=== PATIENT | female | born 1945 | race Caucasian/White ===

== ENCOUNTER 2020-09-06 12:19 | Outpatient (CLI) | payer MEDICARE, OTHER, SELFPAY ==
--- NOTE | 2020-09-06 15:15 | XR_ITS ---
WS: [id number] Exam: XR KUB [id number] Date/Time of Exam: 09/06/2020 12:31 PM Reason For Exam: RENAL CALCULUS Comparison 07/29/2019. No bowel obstruction or free air. Signs of prior cholecystectomy. No significant abnormal calcificati on identified in the abdomen. Small calcifications in the pelvis which are nonspecific and may repres ent phleboliths. Visualized organ margins are intact. Degenerative changes and levoscoliosis of the l umbar spine. L4-5 laminectomy defect. XR/XR KUB [id number] IMPRESSION: 1. Nonspecific small pelvic calcifications noted bilaterally. 2. No acute abdominal finding.
== END 2020-09-06 12:20 | disposition home or self-care (01) ==
PROVIDERS: PCP Family Medicine; Visit Provider Urology
DX: N20.0 Calculus of kidney (principal)
CPT/HCPCS: 74018; 81003

== ENCOUNTER 2021-01-31 12:43 | Outpatient (CLI) | payer MEDICARE, OTHER, SELFPAY ==
--- NOTE | 2021-02-02 05:17 | ONC CON_ITS ---
Dr. Chong New Patient Note Patient: Isatu Joaquin Unit #: [id number]: 1945 Dicatated By: Trey Chong M.D.Date of Visit: January 31, 2021 Onc MED New Patient/Consult Referring Physician: Dr. JACOB TRIVEDI M.D. Chief Complaint: Breast cancer. History of Present Illness: This is a 75-year-old woman with multifocal grade 1 invasive lobular carcinoma of the left breast. She had presented with an abnormal screening mammogram. I do not have the complete report available on the screening mammogram or the subsequent diagnostic mammogram/ultrasound. She was noted, though, to have suspicious appearing lesions in the left breast at the 12:00 and the 1:30 o'clock positions, 8 cm from the nipple. She underwent ultrasound-guided biopsy of both lesions on 01/24/2021. Pathology at both sites showed grade 1 invasive lobular carcinoma. Results of the the breast prognostic profile are still pending. She has been good general health and she has been feeling good generally. She has pretty good energy and she has normal activity. ECOG score is 0. Her appetite is good and her weight is stable. She does not have fever, night sweats, or hot flashes. She has a history of idiopathic urticaria, which has been managed adequately with a combination of cetirizine and diphenhydramine. She does have some sinus drainage. She does not complain of cough, she has no shortness of breath or chest pain. She has no GI/ complaints other than occasional acid reflux. She has some joint pain, mainly in her thumbs, and she also has some chronic back pain. She does not complain of headache or dizziness, and she has no focal neurologic symptoms. Past Medical History: Her medical history includes familial tremor, hyperlipidemia, hypertension, idiopathic urticaria, nephrolithiasis, and type II diabetes. Past Surgical History: Her surgical/procedural history includes right ureteral stent placement followed by ESWL x 2 in 2018, cholecystectomy in 1996, partial hysterectomy in 1981, and spinal fusion in 1972. Medications: Apple Cider Vinegar 1 (450 mg) Tablet Oral daily, Atorvastatin Calcium 1 (10 mg) Tablet Oral daily, Benadryl Allergy 1 (50 mg) Tablet Oral at bedtime, Biotin 1 (5000 mcg) Capsule Oral daily, Bisoprolol-hydroCHLOROthiazide 1 (5-6.25 mg) Tablet Oral daily, Cetirizine HCl 1 (10 mg) Tablet Oral daily, Krill Oil 1 (300 mg) Capsule Oral daily, Melatonin 1 (3 mg) Capsule Oral at bedtime, metFORMIN HCl 1 (500 mg) Tablet Oral b.i.d. Allergies: Aspirin, Carbamates, and Clarithromycin. Social History: Ms. Joaquin is . She is retired. She is a non-smoker. She does not drink alcohol. Family History: Father of tuberculosis at age 35. Mother at 97 of old age. A brother age 78 with liver disease due to alcoholism. There is no history of breast cancer or ovarian cancer in the family. Review Of Symptoms: Constitutional - Her energy is pretty good. She has normal activity. Appetite is good and weight is stable. No fever, night sweats, or hot flashes. ECOG score is 0, Eyes - No change in vision, ENMT - No hearing loss or tinnitus. She has some sinus drainage. No mouth sores. No sore throat or difficulty swallowing, Hematologic/Lymphatic - No abnormal bruising or bleeding, Respiratory - No shortness of breath. No cough. No pleuritic pain or hemoptysis, Cardiovascular - No angina pain. No palpitations, Gastrointestinal - No nausea or vomiting. She has occasional acid reflux. No diarrhea or constipation. No blood in the stool or black stools, Genitourinary (F) - No dysuria or hematuria. No urinary frequency. No urgency or incontinence, Musculoskeletal - She has some joint pain, mainly in her thumbs. She also has back pain, Integumentary - She has idiopathic urticaria, Neurologic - No headache or dizziness. No numbness or tingling. No other focal neurologic symptoms, Psychiatric - She was previously on medication for depression, but that is better now. No insomnia. Vital Signs: Performed on January 31, 2021 14:12: 0, 0, 36.03 (HIGH), 1.90 sq.m, 62 in, 96 %, 78 /min, 18 /min, 137/77 mm(hg), 98.6 F, and 197 lbs (HIGH). Physical Examination: Constitutional - She appears to be in good general health, Eyes - Sclerae nonicteric. Conjunctivae clear, ENMT - No lesions noted in the oral cavity, Neck - No mass or thyromegaly, Hematologic/Lymphatic - No cervical, clavicular, or axillary adenopathy, Respiratory - Lungs are clear with good air movement bilaterally, Cardiovascular - Heart rhythm is regular. There is a II/ systolic murmur. There is no gallop or rub noted, Breasts - There are no breast masses noted. There is no axillary adenopathy, Abdomen - Soft and non-tender. Liver and spleen are not enlarged. There is no abdominal mass or ascites noted and there is no inguinal adenopathy, Back/Spine - No spine or CVA tenderness noted, Extremities - No edema. Pedal pulses are palpable bilaterally, Integumentary - No rashes. No suspicious skin lesions noted, Neurologic - No focal neurologic deficits noted. Problem List: 1. Multifocal grade 1 invasive lobular carcinoma of the left breast, status post ultrasound directed biopsy on 01/24/2021. 2. Idiopathic urticaria. 3. Hypertension. 4. Hyperlipidemia. 5. Type 2 diabetes. 6. History of nephrolithiasis. Problems Addressed with this Encounter and Plan: Patient with multifocal grade 1 invasive lobular carcinoma the left breast. On 01/24/2021 she underwent ultrasound directed biopsy of 2 lesions in the left breast, one at the 12 o'clock position and the other at the 1: 30 o'clock position, both 8 cm from the nipple. I did not have complete report pertaining to the diagnostic mammogram/ultrasound, and at this point I have no estimation on the size of the lesions, but I am assuming they are both small. The pathology results were reviewed with the patient and we discussed the clinical implications. She has multifocal grade 1 invasive lobular carcinoma involving the left breast. She is aware that she does need to have further evaluation with breast MRI to assess for other sites of involvement in the left breast and to assess the right breast, as this does have a higher potential to be bilateral. Depending on the MRI findings and results of the breast prognostic profile, she may still be eligible for breast conservation management, as the lesions do appear to be in very close proximity. If there are other sites of involvement, then she will need to undergo mastectomy. In either case, she also will have axillary lymph node sampling. Recommendations for systemic adjuvant therapy will depend on the final staging and results of the breast prognostic profile. The probability is very high, though, that she will have hormone receptor positive disease and that her systemic adjuvant therapy will be limited to endocrine therapy alone. At her age and with grade 1 disease, assuming her disease is ER/MT positive and there are no other suspected sites of involvement by MRI, we may be able to limit her treatment to lumpectomy/axillary sentinel lymph node biopsy and adjuvant endocrine therapy. Signed By: Trey Chong M.D. <<Signature on File>>
== END 2021-01-31 12:44 | disposition home or self-care (01) ==
LOC: ONCMED 12:51
PROVIDERS: PCP Family Medicine; Visit Provider Internal Medicine Medical Oncology
DX: C50.812 Malignant neoplasm of overlapping sites of left female breast (principal); Z17.0 Estrogen receptor positive status [ER+]; L50.1 Idiopathic urticaria; I10 Essential (primary) hypertension; E78.5 Hyperlipidemia, unspecified; E11.9 Type 2 diabetes mellitus without complications; Z87.442 Personal history of urinary calculi; Z79.899 Other long term (current) drug therapy
CPT/HCPCS: 99205

== ENCOUNTER 2021-03-10 08:45 | Outpatient (CLI) | payer MEDICARE, OTHER, SELFPAY ==
--- NOTE | 2021-03-10 09:43 | ONC CON_ITS ---
Dr. Chong New Patient Note Patient: Isatu Joaquin Unit #: [id number]: 1945 Dicatated By: Trey Chong M.D.Date of Visit: Mar 10, 2021 Onc MED New Patient/Consult Referring Physician: Dr. JACOB TRIVEDI M.D. Chief Complaint: Breast cancer. History of Present Illness: This is a 75-year-old woman with multifocal grade 1 invasive lobular carcinoma of the left breast. She had presented with an abnormal screening mammogram. I do not have the complete report available on the screening mammogram or the subsequent diagnostic mammogram/ultrasound. She was noted, though, to have suspicious appearing lesions in the left breast at the 12:00 and the 1:30 o'clock positions, 8 cm from the nipple. She underwent ultrasound-guided biopsy of both lesions on 01/24/2021. Pathology at both sites showed grade 1 invasive lobular carcinoma. The breast prognostic profile on the 12:00 lesion showed ER positive at 99% and WA positive at at 81%. That tumor was negative for overexpression of HER-2/kelly, 1+ by IHC. The profile on the lesion at 1:30 showed ER positive at 99% and WA positive at 99%. It also was negative for overexpression of HER-2/kelly, 1+ by IHC. I had seen her initially on 01/31/2021. With multifocal lesions in close proximity, I felt that she potentially would still be a candidate for breast conservation management, but I did recommend further imaging with bilateral breast MRI. Some problems were encountered in getting the MRI scheduled, but it was densely done at [facility] on 02/20/2021. The right breast showed some scattered tiny cysts but there were no suspicious areas of enhancement noted in the breast or in the internal mammary or axillary helena areas. The left breast showed 2 small enhancing masses in the mid depth portion relatively near each other, including a 5 mm mass at the 12 o'clock position and a 6 mm mass at the 1:30 o'clock position. There were no other areas of suspicion in the left breast or in the left internal mammary or left axillary helena areas. She is seen now to discuss further management. During this time her clinical course has been further complicated by suspected COVID-19 virus infection 2 weeks ago. At that time her daughter had tested positive and the patient was experiencing similar symptoms. These were limited to low-grade fever for 2 or 3 days and some sniffling and cough. Those symptoms have completely resolved, and she has otherwise been feeling fine. Past Medical History: Her medical history includes familial tremor, hyperlipidemia, hypertension, idiopathic urticaria, nephrolithiasis, and type II diabetes. Past Surgical History: Her surgical/procedural history includes right ureteral stent placement followed by ESWL x 2 in 2017, cholecystectomy in 1996, partial hysterectomy in 1981, and spinal fusion in 1972. Medications: Apple Cider Vinegar 1 (450 mg) Tablet Oral daily, Atorvastatin Calcium 1 (10 mg) Tablet Oral daily, Benadryl Allergy 1 (50 mg) Tablet Oral at bedtime, Biotin 1 (5000 mcg) Capsule Oral daily, Bisoprolol-hydroCHLOROthiazide 1 (5-6.25 mg) Tablet Oral daily, Cetirizine HCl 1 (10 mg) Tablet Oral daily, Krill Oil 1 (300 mg) Capsule Oral daily, Melatonin 1 (3 mg) Capsule Oral at bedtime, metFORMIN HCl 1 (500 mg) Tablet Oral b.i.d. Allergies: Aspirin, Carbamates, and Clarithromycin. Social History: Ms. Joaquin is . She is retired. She is a non-smoker. She does not drink alcohol. Family History: Father of tuberculosis at age 35. Mother at 97 of old age. A brother age 78 with liver disease due to alcoholism. There is no history of breast cancer or ovarian cancer in the family. Vital Signs: Performed on Mar 10, 2021 09:10: 2, 0, 35.01 (HIGH), 1.88 sq.m, 62.00 in, 97 %, 67 /min, 18 /min, 116/79 mm(hg), 97.1 F (LOW), and 191.4 lbs (LOW). Physical Examination: Constitutional - She looks good generally, Respiratory - Lungs are clear with good air movement bilaterally, Cardiovascular - Heart rhythm is regular. There is a II/ systolic murmur. There is no gallop or rub noted, Extremities - No edema. Problem List: 1. Multifocal grade 1 invasive lobular carcinoma of the left breast, ER/WA positive and HER-2/kelly negative. 2. Idiopathic urticaria. 3. Hypertension. 4. Hyperlipidemia. 5. Type 2 diabetes. 6. History of nephrolithiasis. Problems Addressed with this Encounter and Plan: Patient with multifocal grade 1 invasive lobular carcinoma the left breast. On 01/24/2021 she underwent ultrasound directed biopsy of 2 lesions in the left breast, one at the 12 o'clock position and the other at the 1:30 o'clock position, both 8 cm from the nipple. Both lesions were ER chest WA positive and HER-2/kelly negative. By imaging, the lesions are in close proximity, and both appear to be T1b lesions. Bilateral breast MRI shows no other suspicious lesions and no evidence of intramammary or axillary lymphadenopathy. As such, by clinical evaluation, she appears to have stage IA disease and her disease appears to be amenable to breast conservation management. Per NCCN guidelines, I think it is very reasonable to limit her treatment to lumpectomy and adjuvant endocrine therapy, assuming a negative margin can be obtained with the lumpectomy procedure. With negative clinical staging of the axilla by MRI, I think it is also acceptable to forego the axillary sentinel lymph node sampling. I did review anticipated side effects that may be associated with endocrine therapies, including the potential for osteoporosis and/or musculoskeletal pain with aromatase inhibitors and the risk of thromboembolism with tamoxifen. She is agreeable to proceeding with treatment as recommended, and she will now be seeing Dr. Vazquez for scheduling the lumpectomy procedure. Signed By: Trey Chong M.D. <<Signature on File>>
== END 2021-03-10 08:46 | disposition home or self-care (01) ==
PROVIDERS: PCP Family Medicine; Visit Provider Internal Medicine Medical Oncology
DX: C50.812 Malignant neoplasm of overlapping sites of left female breast (principal); Z17.0 Estrogen receptor positive status [ER+]; L50.1 Idiopathic urticaria; I10 Essential (primary) hypertension; E78.5 Hyperlipidemia, unspecified; E11.9 Type 2 diabetes mellitus without complications; Z87.442 Personal history of urinary calculi; Z79.899 Other long term (current) drug therapy; Z90.12 Acquired absence of left breast and nipple
CPT/HCPCS: 99215

== ENCOUNTER → 2021-03-14 14:38 | Outpatient (BNVA) | payer MEDICARE, OTHER, SELFPAY | PROVIDERS: PCP Family Medicine; Visit Provider Surgery | DX: C50.912 Malignant neoplasm of unspecified site of left female breast (principal); Z20.822 Contact with and (suspected) exposure to COVID-19 | CPT/HCPCS: 87635 ==

== ENCOUNTER 2021-03-16 19:00 | Observation (INO) | payer MEDICARE, OTHER, SELFPAY ==
[2021-03-15 10:54] VITALS: BMI 34.7
[2021-03-16] VITALS (12 sets, daily range): BP systolic 105–147; BP diastolic 63–97; PULSE 64–84; RESP 12–18; TEMP 36.1–36.8; O2SAT 93–98
--- NOTE | 2021-03-16 | US_ITS ---
WS: [id number] NUCLEAR MEDICINE SENTINEL LYMPH NODE IMAGING HISTORY: Left Breast Lumpectomy COMPARISON: 01/24/2021 TECHNIQUE: The patient was injected with 0.95 mCi of Technetium 99 ultra filtered sulfur colloid. Inj ection is intradermal in a periareolar location. Four aliquots are used.
--- NOTE | 2021-03-16 10:23 | W.PM.OPSUD ---
Surgery/Procedure H&P Update DATE OF PROCEDURE: March 16, 2021 DATE H&P PERFORMED: 03/10/21 H&P UPDATE INFORMATION: I have reviewed H&P completed within last 30 days, I have examined patient prior to procedure and No changes to prior documentation PREOP DIAGNOSIS: Left breast cancer PLANNED PROCEDURE: Operation Date: 03/16/21 11:45 Proposed Procedures p left needle loc lumpectomy with sentinel node biopy [id number] N63.20(Left) - Patrick Vazquez MD s Sentinal Lymph Node Biopsy(Left) - Patrick Vazquez MD
--- NOTE | 2021-03-16 10:24 | US_ITS ---
WS: [id number] ULTRASOUND-GUIDED LEFT BREAST NEEDLE LOCALIZATION x 2 HISTORY: Left Breast lumpectomy Procedure, risks and complications were explained to the patient. Consent is obtained. Skin is cleansed with ChloraPrep and anesthetized with 1% buffered lidocaine. Needle and guidewire pl aced to the area of concern with no complications. 2 guidewires or LEFT, one at 12:00 and one at 1:00 . These are closely associated with the biopsy clips and nodules that were previously biopsied. Ultra sound guidance performed during the needle localization. Guidewire is left within the lesion. Guidewi re secured and no complications encountered. Patient is being transported to the OR suite. Specimen radiograph is also reviewed. Wires and biopsy clips are present in the specimen. Ultrasound and mammographic images were performed to confirm. RECOMMENDATIONS: Follow-up with Dr. Vazquez. US/[place] [id number] IMPRESSION: 1. Ultrasound-guided wire localization of 2 areas within the LEFT breast with no complication. Wires and post biopsy clips are within the specimen. PATHOLOGY RESULTS: Pending. At this time the results have been not finalized.
[2021-03-16 10:31] LABS: Glucose Point of Care 97 mg/dL (70-110)
[2021-03-16] MEDS: sodium chloride 0.9% 1,000 ML 30 ML (10:41)
[2021-03-16 11:42] LABS: Glucose Point of Care 97 mg/dL (70-110)
--- NOTE | 2021-03-16 11:45 | NM_ITS ---
WS: [id number] NUCLEAR MEDICINE SENTINEL LYMPH NODE IMAGING HISTORY: Left Breast Lumpectomy COMPARISON: 01/24/2021 TECHNIQUE: The patient was injected with 0.95 mCi of Technetium 99 ultra filtered sulfur colloid. Inj ection is intradermal in a periareolar location. Four aliquots are used. NM/NM sentinel node inject [id number] IMPRESSION: Uncomplicated LEFT breast sentinel lymph node injection.
--- NOTE | 2021-03-16 12:07 | ANES.PREANE2 ---
Pre-Anesthetic Assessment Pre-Anesthetic Assessment: Height/Weight: Height 1.57 m Weight 86.183 kg Temp Pulse Resp BP Pulse Ox 98.2 F 66 18 147/90 97 03/16/21 09:46 03/16/21 09:46 03/16/21 09:46 03/16/21 09:46 03/16/21 09:46 Preop Diagnosis: Left breast cancer Proposed Procedure: Operation Date: 03/16/21 11:45 Proposed Procedures p left needle loc lumpectomy with sentinel node biopy [id number] N63.20(Left) - Patrick Vazquez MD s Sentinal Lymph Node Biopsy(Left) - Patrick Vazquez MD Was Beta Geovanny taken within 24 hours: Yes Was Clonidine taken within 24 hours: N/A Last intake: Intake Last Liquid Date 03/15/21 Last Liquid Time 21:00 Last Solid Date 03/15/21 Last Solid Time 21:00 Social: Social History: No alcohol and No tobacco Exam: Pre-Anes Outpt Exam: alert, oriented x 3, clear to auscultation bilaterally and regular rate & rhythm Airway: Submandibular: WNL Cervical ROM: WNL MP: 2 Pulmonary: Pulmonary: None reported CV/HEM: CV/HEM: HTN : : None reported Hepatic: Hepatic: None reported GI: GI: None reported Metabolic: Metabolic: DM Musc/skel: Musc/skel: OA/DJD Neuropsych: Neuropsych: None reported Anesthetic Plan: ASA status: 3 Anesthesia: General PFSH Anesthesia PFSH: Medical History (Updated 03/11/21 @ 14:23 by Patrick Vazquez MD) Angioedema Diabetes HTN (hypertension) Invasive lobular carcinoma of left breast in female Urolithiasis History of urolithiasis requiring ESWL to a right renal calculus in 2018. Did well. Surgical History History of back surgery History of extraction of renal calculus ESWL WITH STENT PLACEMENT AND STENT REMOVAL Hx of cholecystectomy Hx of hysterectomy Family History Mother , AT AGE 98 CHF (congestive heart failure) FATHER AT AGE 35 TUBERCULOSIS Social History Smoking and tobacco status: never smoked Alcohol intake: never Adopted: No Caregiver/support person: No Lives independently: Yes Marital status: / Current occupational status: retired Data Anesthesia Other Labs: Laboratory Results - last 48 hr 03/16/21 03/16/21 10:06 11:37 POC Glucose 97 97 Cardiac Studies: No Data to Display
[2021-03-16] MEDS: lidocaine 1% INJ 20 mL IM (13:46)
[2021-03-16] MEDS: isosulfan blue 10 mg/mL SDV 5mL SUBCUT (14:00)
--- NOTE | 2021-03-16 14:28 | MM_ITS ---
WS: [id number] ULTRASOUND-GUIDED LEFT BREAST NEEDLE LOCALIZATION x 2 HISTORY: Left Breast lumpectomy Procedure, risks and complications were explained to the patient. Consent is obtained. Skin is cleansed with ChloraPrep and anesthetized with 1% buffered lidocaine. Needle and guidewire pl aced to the area of concern with no complications. 2 guidewires or LEFT, one at 12:00 and one at 1:00 . These are closely associated with the biopsy clips and nodules that were previously biopsied. Ultra sound guidance performed during the needle localization. Guidewire is left within the lesion. Guidewi re secured and no complications encountered. Patient is being transported to the OR suite. Specimen radiograph is also reviewed. Wires and biopsy clips are present in the specimen. Ultrasound and mammographic images were performed to confirm. RECOMMENDATIONS: Follow-up with Dr. Vazquez. MM/MM surgical specimen LT IMPRESSION: 1. Ultrasound-guided wire localization of 2 areas within the LEFT breast with no complication. Wires and post biopsy clips are within the specimen. PATHOLOGY RESULTS: Pending. At this time the results have been not finalized.
--- NOTE | 2021-03-16 15:08 | SUR.PHASEI ---
DRESSING TO LT BREAST D/I PT DENIES PAIN, FAMILY IN ROOM VSS.
--- NOTE | 2021-03-16 15:16 | ANE.PACU2 ---
Inpatient post-anesthesia follow up: Airway intact: Yes Vital signs: Temperature 97.2 F Pulse Rate 64 Respiratory Rate 18 Blood Pressure 107/81 Pulse Oximetry 94 Oxygen Delivery Me thod Nasal Cannula Oxygen Flow Rate 3 Fraction of Inspir ed Oxygen Hydration adequate: Yes Nausea and vomiting: No Pain level: 3 Mental status: Baseline
--- NOTE | 2021-03-16 15:25 | SUR.PHASEI ---
1459 PT TO PACU WITH ORAL AIRWAY IN PLACE VSS O2 PER NC AT 8 LITERS GOOD RESP EFFORT NOTED .
--- NOTE | 2021-03-16 15:26 | SUR.PHASEI ---
EARLIER NOTE TIMED 1508 IN ERROR, SHOULD BE TIMED FOR NOW PT AWAKES EASILY VSS.
[2021-03-16] MEDS: ondansetron 2 mg/ML SDV 2 mL 4 MG IVP ×2 (15:42→16:00)
--- NOTE | 2021-03-16 16:00 | SUR.PHASEII ---
patient vomited small amount of green emesis. airway patent. medicated for nausea.
[2021-03-16] MEDS: metoclopramide 5 mg/mL SDV 2 mL 10 MG IVP ×2 (16:21→17:42)
--- NOTE | 2021-03-16 16:22 | SUR.PHASEII ---
re-medicated for vomiting. airway patent. patient ventilating well.family at bedside. patient responds to verbal commands.
--- NOTE | 2021-03-16 17:42 | SUR.PHASEII ---
patient vomited for a fourth time. green gastric fluid. airway clear. evaluated by doctor Kay. Re-medicated for nausea. \Sleeping but responds to verbal.
--- NOTE | 2021-03-16 18:02 | PM.OP ---
Operative Report Date of procedure: March 16, 2021 Pre-op Diagnosis: Invasive lobular carcinoma left breast Post-op Findings: Invasive lobular carcinoma left breast Procedure Done: 1. Wire localization lumpectomy with shave margins left breast x2 lesions 2. Injection of 3 cc of 1% Lymphazurin 3. Left axillary sentinel lymph node biopsy. Specimens removed/disposition: 1. Left breast lumpectomy specimen, short stitch superior, long stitch lateral 2. Posterior margin outer edge inked 3. Inferior margin outer edge inked 4. Medial margin outer red inked 5. New medial margin outer edge inked 6. [place] lymph node biopsy Surgeon: Patrick Vazquez Anesthesia: General Condition: stable Disposition: PACU Procedure: The wire localization of the mammographic abnormality was performed by the radiologist under ultrasound guidance and the patient was transferred to operating room and placed under MAC after IV antibiotic had been administered. The left breast was prepped and draped in a manner . A curvilinear incision was made at 3 o'clock position medial to the wires, subcutaneous tissue was divided and skin flaps were raised medially and laterally. The 2 localization wire were grasped through the incision and using electrocautery the wires along with the breast tissue containing 2 lesions were dissected free from the surrounding tissue. 1 cm shave margins were obtained from the inferior, medial, lateral aspect of the lumpectomy cavity. Using 2-0 silk suture, short stitch was placed superiorly and a long stitch was placed laterally. The lumpectomy specimens were sent to mammography to obtain radiological confirmation of complete excision of the mammographic abnormality. Due to concern of proximity of the biopsy clips to the edge of the lumpectomy specimen, new medial shave margins were obtained. A technetium sulfur colloid had been injected previously by the radiologist in the periareolar area. 3 mL of 1% Lymphazurin was injected in the subareolar location. The breast was massaged for 5 minutes and a 2 cm incision was made in the left axilla at the edge of the hairline. The subcutaneous tissue and clavipectoral fascia was divided with electrocautery and gentle dissection revealed radioactive lymph nodes using a gamma probe. Using electrocautery the lymph nodes were dissected free. Examination of the axilla did not reveal any other lymph nodes. The clavipectoral and subcutaneous tissue was approximated using running 3-0 Vicryl suture and skin was closed using running subcuticular 4-0 Monocryl suture and Dermabond. Fluffs were used for pressure dressing. Patient was transferred to recovery room and stable condition
--- NOTE | 2021-03-16 18:14 | SUR.PHASEII ---
Report given to second floor nurse -TEVIN . patient remains sleeping but responds to verbal. airway patent, ventilating well.
[2021-03-16 18:19] LABS: Glucose Point of Care 108 mg/dL (70-110)
[2021-03-16 21:11] LABS: Glucose Point of Care 156 mg/dL (70-110)
[2021-03-17 04:03] VITALS: BP 104/70; PULSE 77; RESP 17; TEMP 36.9; O2SAT 92
[2021-03-17 04:15] VITALS: PULSE 80; RESP 17; O2SAT 98
[2021-03-17 04:20] VITALS: PULSE 79
[2021-03-17 08:13] VITALS: BP 109/70; PULSE 77; RESP 18; TEMP 36.9; O2SAT 95
--- NOTE | 2021-03-17 15:16 | PM.DCS ---
Discharge Providers Date of Admission: 03/16/21 19:00 Date of Discharge: March 17, 2021 Attending Provider at Admission: Patrick Vazquez MD Attending Provider at Discharge: Patrick Vazquez MD Primary Care Provider: Jayden Clarke MD Reason for Visit Reason for Visit: left needle loc lumpectomy with sentinel node biop Hospital Course Hospital Course This is a 75-year-old female who was diagnosed with invasive lobular carcinoma who underwent left breast lumpectomy and sentinel lymph node biopsy. Patient was admitted overnight due to significant nausea. By following morning her vital signs are stable, she was tolerating regular diet and her nausea had resolved. Discharge Data Data Completed and Pending: Completed Studies During Hospitalization Category Date Time Status NM sentinel node inject [id number] Routi ne Nuc Med 03/16/21 11:45 Completed US surgical speci men Routine Ultrasound 03/16/21 Completed Pending at discharge Category Date Time Status MM surgical speci men LT Routine Mammo 03/16/21 14:28 Taken Pathology: Surgic al [PTH] Routine Pth 03/16/21 14:54 [place] [id number] Routi ne Ultrasound 03/16/21 10:24 Taken Labs from last 24 hours 03/16/21 03/16/21 21:07 15:11 POC Glucose 156 H 108 Vitals: Last Vital Signs Temp 98.4 F 03/17/21 08:13 Pulse 77 03/17/21 08:13 Resp 18 03/17/21 08:13 BP 109/70 03/17/21 08:13 Pulse Ox 95 03/17/21 08:13 Discharge Plan Discharge Patient Disposition: Home Condition: Stable Prescriptions: New Zofran 4 mg tablet 4 mg PO Q6H PRN (Reason: nausea and vomiting) Qty: 20 RF: 0 Colace 100 mg capsule 100 mg PO BID Qty: 30 RF: 0 hydrocodone-acetaminophen 5-325 mg tablet 1 tab PO Q6H PRN (Reason: pain) Qty: 20 RF: 0 Continued metformin 500 mg tablet 500 mg PO BID RF: 0 bisoprolol-hydrochlorothiazide [Ziac] 5-6.25 mg tablet 1 tab PO DAILY RF: 0 Zyrtec 10 mg capsule 20 mg PO DAILY RF: 0 diphenhydramine HCl [Benadryl Allergy] 25 mg tablet 50 mg PO DAILY RF: 0 Discharge Orders: Discharge Order (Routine); Ordered 03/17/21 Ordered By: Patrick Vazquez Referrals: Patrick Vazquez MD [Physician] - 1 month Patient Instructions: Excisional Breast Biopsy (DC), Opioid Safety Activity Restrictions/Additional Instructions: Diet Advance to normal diet as tolerated, increase fluid intake as much as possible. Activity Avoid strenuous activity for 2 weeks but continue with daily activities including walking as tolerated. Do not lift more than 10 pounds for 2 weeks Return to work/school You can return to work/ school whenever you feel ready as long as you don?t have to lift more than 10 pounds at work. If you have paperwork that needs to be completed for time off from work, please contact my office Driving You can resume driving once you stop using narcotic pain medications, and transition to non-opioid pain medications like Tylenol, Motrin, Aleve, etc. Medications Pain Take opioid pain medications as prescribed and transition to non-opioid pain medications like Tylenol, Motrin, Aleve etc. over the next few days. The goal of the pain medications is to make the pain bearable and not to be pain free since you recently had surgery. Resume all home medications after surgery as per the medication reconciliation list Nausea Nausea is common after surgery, take nausea medications as needed and stay on a liquid bland diet until nausea resolves. Constipation The combination of surgery, anesthesia and pain medications can result in constipation. Take stool softeners as prescribed. If you do not have a bowel movement in 3 days, please take an [id number] laxative like MiraLAX to address the constipation. Shower It is ok to shower but avoid getting the wound wet for 48 hours after surgery. Do not soak in bathtub, swimming pool or hot tub for 2 weeks. Wound care If glue has been used on your incisions after surgery, the glue on the incision will peel slowly over the next two weeks. The stitches used are dissolvable and will not need to be removed. Do not apply antibiotics or other medications on the incision Problems with the wound: you can develop some redness around the incision from bruising after surgery. If there is increasing pain, redness, tenderness around the incision with or without drainage, please contact my office to rule out an infection. Sometimes the skin at the incisions can separate, resulting in reopening of the wound. Cover the wound with antibiotic cream and sterile dressings and contact my office. Contact physician Call the office at [phone] during office hours or go the Emergency Room ?Fever to 100.4 or greater ?Shaking chills ?Pain that increases over time ?Redness, warmth, or pus draining from incision sites ?Persistent nausea or inability to take in liquids Discharge Attestations Time Spent in Discharge Care*: less than 30 min Quality Metrics Clinical Quality Measures During this hospital stay, did patient experience: None Coding Level of Care Code Acute Anabela WARREN DC note
== END 2021-03-17 08:10 | disposition home or self-care (01) ==
LOC: MEDSURG 21:11
PROVIDERS: Admitting Provider Surgery; PCP Family Medicine; Visit Provider Surgery
PROC: (CPT 19301; principal; 2021-03-16 11:45)
PROC: (CPT 19301; 2021-03-16 11:45)
DX: C50.912 Malignant neoplasm of unspecified site of left female breast (principal); I10 Essential (primary) hypertension; E11.9 Type 2 diabetes mellitus without complications; M19.90 Unspecified osteoarthritis, unspecified site; Z20.822 Contact with and (suspected) exposure to COVID-19
CPT/HCPCS: 19301; 38525; 19285; 19286; 36416; 38792; 82962; 88305; 96365; A9541; G0378; J0690; J1170; J2250; J2405; J2704; J2765; J3010; J3490; J7030; Q9968

== ENCOUNTER 2021-04-11 06:00 | Outpatient (CLI) | payer MEDICARE, OTHER, SELFPAY ==
--- NOTE | 2021-04-14 17:55 | ONC FU_ITS ---
Dr. Chong Patient Follow-Up Note Patient: Isatu Joaquin Unit #: [id number]: [id number] Dicatated By: Trey Chong M.D.Date of Visit:Apr 11, 2021 Onc Med Follow-up/Prog Note Chief Complaint: Breast cancer. History of Present Illness: This is a 75-year-old woman with multifocal grade 1 invasive lobular carcinoma of the left breast. She had presented with an abnormal screening mammogram. I do not have the complete report available on the screening mammogram or the subsequent diagnostic mammogram/ultrasound. She was noted, though, to have suspicious appearing lesions in the left breast at the 12:00 and the 1:30 o'clock positions, 8 cm from the nipple. She underwent ultrasound-guided biopsy of both lesions on 01/24/2021. Pathology at both sites showed grade 1 invasive lobular carcinoma. The breast prognostic profile on the 12:00 lesion showed ER positive at 99% and ME positive at at 81%. That tumor was negative for overexpression of HER-2/kelly, 1+ by IHC. The profile on the lesion at 1:30 showed ER positive at 99% and ME positive at 99%. It also was negative for overexpression of HER-2/kelly, 1+ by IHC. I had seen her initially on 01/31/2021. With multifocal lesions in close proximity, I felt that she potentially would still be a candidate for breast conservation management, but I did recommend further imaging with bilateral breast MRI. Some problems were encountered in getting the MRI scheduled, but it was densely done at [facility] on 02/20/2021. The right breast showed some scattered tiny cysts but there were no suspicious areas of enhancement noted in the breast or in the internal mammary or axillary helena areas. The left breast showed 2 small enhancing masses in the mid depth portion relatively near each other, including a 5 mm mass at the 12 o'clock position and a 6 mm mass at the 1:30 o'clock position. There were no other areas of suspicion in the left breast or in the left internal mammary or left axillary helena areas. I had seen her for a follow-up visit on 03/10/2021. Given the MRI findings, she was recommended to proceed with left breast lumpectomy and axillary sentinel lymph node biopsy. Her further management, though, was complicated due to suspected COVID-19 virus infection. Ultimately, she did have the procedure performed by Dr. Vazquez on 03/16/2021. According to the operative note, the lumpectomy specimen included both lesions. Pathology showed a single focus of grade 1 invasive lobular carcinoma measuring 0.4 cm. All margins were negative and uninvolved. There was no in situ carcinoma identified. Two foci of atypical lobular hyperplasia were noted in the specimen. The left axillary lymph node sampling showed no involvement in 5 lymph nodes. Her pathologic staging was pT1a, pN0. She is seen now for a follow-up visit. She has been feeling good generally. She had completely recovered from the COVID-19 illness prior to the surgery. Medications: Atorvastatin Calcium 1 (10 mg) Tablet Oral daily, Benadryl Allergy 1 (50 mg) Tablet Oral at bedtime, Bisoprolol-hydroCHLOROthiazide 1 (5-6.25 mg) Tablet Oral daily, Cetirizine HCl 1 (10 mg) Tablet Oral daily, Melatonin 1 (3 mg) Capsule Oral at bedtime, metFORMIN HCl 1 (500 mg) Tablet Oral b.i.d. Allergies: Aspirin, Carbamates, and Clarithromycin. Vital Signs: Performed on Apr 11, 2021 13:52 Height - 62.00 in Weight - 194.4 lbs (HIGH) BSA - 1.89 sq.m BMI - 35.56 (HIGH) Temperature - 97.8 F (LOW) Pulse - 84 /min Respiration - 18 /min BP - 122/79 mm(hg) O2 Sat - 98 % Pain - 0 Fatigue - 3 Problem List: 1. Multifocal grade 1 invasive lobular carcinoma of the left breast, stage IA (pT1a, pN0, M0), ER/ME positive and HER-2/kelyl negative. 2. Idiopathic urticaria. 3. Hypertension. 4. Hyperlipidemia. 5. Type 2 diabetes. 6. History of nephrolithiasis. Problems Addressed with this Encounter and Plan: Patient with multifocal grade 1 invasive lobular carcinoma the left breast. On 01/24/2021 she underwent ultrasound directed biopsy of 2 lesions in the left breast, one at the 12 o'clock position and the other at the 1:30 o'clock position, both 8 cm from the nipple. Both lesions were ER/ME positive and HER-2/kelly negative. By imaging, the lesions were in close proximity, and both appeared to be T1b lesions. Bilateral breast MRI showed no other suspicious lesions and no evidence of intramammary or axillary lymphadenopathy. As such, by clinical evaluation, she appears to have stage IA disease, and her disease appeared to be amenable to breast conservation management. She then underwent left breast lumpectomy with axillary sentinel lymph node biopsy on 03/16/2021. Pathology showed a single focus of grade 1 invasive lobular carcinoma measuring 0.4 cm. The margins were negative. There was no involvement in 5 axillary lymph nodes. Given the pathology findings, her disease is stage IA (pT1a, pN0, M0). It is ER/ME positive and HER-2/kelly negative. Per NCCN guidelines, she is recommended to have adjuvant endocrine therapy, but she can be safely treated without radiation. She will now begin adjuvant therapy with anastrozole 1 mg daily. I reviewed anticipated side effects which may include osteoporosis and/or musculoskeletal pain. Hot flashes and fatigue are other possible side effects, though less frequent. I will need to reassess her baseline bone density as her last study was done in 2016. She did have evidence of mild osteopenia at that time. She will be scheduled for a follow-up visit in 3 months. Signed By: Trey Chong M.D. <<Signature on File>>
== END 2021-04-11 06:01 | disposition home or self-care (01) ==
LOC: ONCMED 06:00
PROVIDERS: PCP Family Medicine; Visit Provider Internal Medicine Medical Oncology
DX: C50.812 Malignant neoplasm of overlapping sites of left female breast (principal); Z17.0 Estrogen receptor positive status [ER+]; Z79.811 Long term (current) use of aromatase inhibitors; L50.1 Idiopathic urticaria; I10 Essential (primary) hypertension; E78.5 Hyperlipidemia, unspecified; E11.9 Type 2 diabetes mellitus without complications; Z87.442 Personal history of urinary calculi; Z79.899 Other long term (current) drug therapy
CPT/HCPCS: 99214

== ENCOUNTER 2021-04-14 12:28 | Outpatient (CLI) | payer MEDICARE, OTHER, SELFPAY ==
--- NOTE | 2021-04-14 12:41 | XR_ITS ---
WS: [id number] SCREENING DEXA SCAN [facility] CLINICAL INFORMATION: ASYMPTOMATIC MENOPAUSAL STATE COMPARISON: None. FINDINGS: The L1-L4 bone mineral density measures . This corresponds to a T score score of and Z score of . Left femoral neck bone mineral density measures 0.779 g/cm2. This corresponds to a T score of -1.8 an d Z score of -0.5. Right femoral neck bone mineral density measures 0.761 g/cm2. This corresponds to a T score -2.0of an d Z score of -0.7. Mean femoral neck bone mineral density measures 0.770 g/cm2. This corresponds to a T score of -1.9 an d Z score of -0.6. XR/XR DEXA axial skeleton* [id number] IMPRESSION: Osteopenia. Patient's FRAX calculated 10 year probability for major osteoporotic fracture i s 18.3 % and osteoporotic hip fracture is 6.3%.
== END 2021-04-14 12:29 | disposition home or self-care (01) ==
PROVIDERS: PCP Family Medicine; Visit Provider Internal Medicine Medical Oncology
DX: C50.812 Malignant neoplasm of overlapping sites of left female breast (principal); M85.89 Other specified disorders of bone density and structure, multiple sites
CPT/HCPCS: 77080

== ENCOUNTER 2021-08-01 14:55 | Outpatient (CLI) | payer MEDICARE, OTHER, SELFPAY ==
--- NOTE | 2021-08-02 06:36 | ONC FU_ITS ---
Dr. Chong Patient Follow-Up Note Patient: Isatu Joaquin Unit #: [id number]: [id number] Dicatated By: Trey Chong M.D.Date of Visit:Aug 01, 2021 Onc Med Follow-up/Prog Note Chief Complaint: Breast cancer. History of Present Illness: This is a 75-year-old woman with multifocal grade 1 invasive lobular carcinoma of the left breast, stage IA (T1b, N0, M0), ER/MO positive and HER-2/kelly negative. She had presented with an abnormal screening mammogram. I do not have the complete report available on the screening mammogram or the subsequent diagnostic mammogram/ultrasound. She was noted, though, to have suspicious appearing lesions in the left breast at the 12:00 and the 1:30 o'clock positions, 8 cm from the nipple. She underwent ultrasound-guided biopsy of both lesions on 01/24/2021. Pathology at both sites showed grade 1 invasive lobular carcinoma. The breast prognostic profile on the 12:00 lesion showed ER positive at 99% and MO positive at at 81%. That tumor was negative for overexpression of HER-2/kelly, 1+ by IHC. The profile on the lesion at 1:30 showed ER positive at 99% and MO positive at 99%. It also was negative for overexpression of HER-2/kelly, 1+ by IHC. I had seen her initially on 01/31/2021. With multifocal lesions in close proximity, I felt that she potentially would still be a candidate for breast conservation management, but I did recommend further imaging with bilateral breast MRI. Some problems were encountered in getting the MRI scheduled, but it was eventually done at [facility] on 02/20/2021. The right breast showed some scattered tiny cysts but there were no suspicious areas of enhancement noted in the breast or in the internal mammary or axillary helena areas. The left breast showed 2 small enhancing masses in the mid depth portion relatively near each other, including a 5 mm mass at the 12 o'clock position and a 6 mm mass at the 1:30 o'clock position. There were no other areas of suspicion in the left breast or in the left internal mammary or left axillary helena areas. I had seen her for a follow-up visit on 03/10/2021. Given the MRI findings, she was recommended to proceed with left breast lumpectomy and axillary sentinel lymph node biopsy. Her further management, though, was complicated due to suspected COVID-19 virus infection. Ultimately, she did have the procedure performed by Dr. Vazquez on 03/16/2021. According to the operative note, the lumpectomy specimen included both lesions. Pathology showed a single focus of grade 1 invasive lobular carcinoma measuring 0.4 cm. All margins were negative and uninvolved. There was no in situ carcinoma identified. Two foci of atypical lobular hyperplasia were noted in the specimen. The left axillary lymph node sampling showed no involvement in 5 lymph nodes. Her pathologic staging was pT1a, pN0. Given those findings, she opted not to take radiation. She then began adjuvant endocrine therapy with anastrozole 1 mg daily on 04/11/2021. Her other medical illnesses include hypertension, hyperlipidemia, and type 2 diabetes. She also has degenerative arthritis/degenerative disease of the spine. She has a history of idiopathic urticaria and a history of nephrolithiasis. She is a non-smoker. INTERIM HISTORY: Her baseline bone density showed osteopenia with T score -1.8 in the left femoral neck and -2.0 in the right femoral neck. She is seen for a follow-up visit. She has been feeling a little tired since starting the anastrozole, but she still has normal activity. ECOG score is 0. She has good appetite. She has not had fever. She has been having some hot flashes and sweating. She has not had sore mouth or throat. She does not complain of cough, and she has not been having shortness of breath or chest pain. She has no GI or complaints. She has joint pain, but it has not gotten not any worse. She does not complain of headache or dizziness, and she has no focal neurologic symptoms. Medications: Anastrozole 1 Tablet (of 1 mg) Oral daily, Atorvastatin Calcium 1 (10 mg) Tablet Oral daily, Benadryl Allergy 1 (50 mg) Tablet Oral at bedtime, Bisoprolol-hydroCHLOROthiazide 1 (5-6.25 mg) Tablet Oral daily, Cetirizine HCl 1 (10 mg) Tablet Oral daily, Melatonin 1 (3 mg) Capsule Oral at bedtime PRN, metFORMIN HCl 1 (500 mg) Tablet Oral b.i.d. Allergies: Aspirin, Carbamates, and Clarithromycin. Vital Signs: Performed on Aug 01, 2021 15:08 Height - 62.00 in Weight - 199.8 lbs (HIGH) BSA - 1.91 sq.m BMI - 36.54 (HIGH) Temperature - 96.0 F (LOW) Pulse - 78 /min Respiration - 16 /min BP - 138/83 mm(hg) O2 Sat - 96 % Pain - 0 Fatigue - 3 Physical Examination: Constitutional - She looks good generally, Eyes - Sclerae nonicteric. Conjunctivae clear, ENMT - No lesions noted in the oral cavity, Hematologic/Lymphatic - No cervical, clavicular, or axillary adenopathy, Respiratory - Lungs are clear with good air movement bilaterally, Cardiovascular - Heart rhythm is regular. There is no murmur, gallop, or rub noted, Abdomen - Mildly distended. Liver and spleen are not enlarged. There is no abdominal mass or ascites noted and there is no inguinal adenopathy, Extremities - No edema, Neurologic - No focal neurologic deficits noted. Problem List: 1. Multifocal grade 1 invasive lobular carcinoma of the left breast, stage IA (pT1a, pN0, M0), ER/MO positive and HER-2/kelly negative. 2. Idiopathic urticaria. 3. Hypertension. 4. Hyperlipidemia. 5. Type 2 diabetes. 6. History of nephrolithiasis. 7. Degenerative arthritis/degenerative disease of the spine. 8. Osteopenia. Problems Addressed with this Encounter and Plan: 1. Patient with multifocal grade 1 invasive lobular carcinoma the left breast, stage IA (pT1a, pN0, M0), ER/MO positive and HER-2/kelly negative. On 01/24/2021 she underwent ultrasound directed biopsy of 2 lesions in the left breast, one at the 12 o'clock position and the other at the 1:30 o'clock position, both 8 cm from the nipple. Both lesions were ER/MO positive and HER-2/kelly negative. By imaging, the lesions were in close proximity, and both appeared to be T1b lesions. Bilateral breast MRI showed no other suspicious lesions and no evidence of intramammary or axillary lymphadenopathy. She underwent left breast lumpectomy with axillary sentinel lymph node biopsy on 03/16/2021. Pathology showed a single focus of grade 1 invasive lobular carcinoma measuring 0.4 cm. The margins were negative. There was no involvement in 5 axillary lymph nodes. Pathologic staging was pT1a, pN0. Given the pathologic findings, she opted not to take radiation. She began adjuvant hormonal therapy with anastrozole in April 2021. Thus far she has tolerated it well with side effects limited to mild fatigue and hot flashes. She continues anastrozole 1 mg daily. I will see her again in 6 months. 2. Her baseline Dexa scan showed osteopenia. She will start treatment with alendronate 70 mg weekly. Signed By: Trey Chong M.D. <<Signature on File>>
== END 2021-08-01 14:56 | disposition home or self-care (01) ==
LOC: ONCMED 14:57
PROVIDERS: PCP Family Medicine; Visit Provider Internal Medicine Medical Oncology
DX: C50.812 Malignant neoplasm of overlapping sites of left female breast (principal); Z17.0 Estrogen receptor positive status [ER+]; Z90.12 Acquired absence of left breast and nipple; Z79.811 Long term (current) use of aromatase inhibitors; L50.1 Idiopathic urticaria; I10 Essential (primary) hypertension; E78.5 Hyperlipidemia, unspecified; E11.9 Type 2 diabetes mellitus without complications; M47.9 Spondylosis, unspecified; M85.80 Other specified disorders of bone density and structure, unspecified site; Z87.442 Personal history of urinary calculi; Z79.899 Other long term (current) drug therapy
CPT/HCPCS: 99214

== ENCOUNTER 2021-09-11 04:02 | Emergency (ER) | payer MEDICARE, OTHER, SELFPAY ==
[2021-09-11 04:14] VITALS: BP 129/83; PULSE 77; RESP 18; TEMP 36.5; O2SAT 97; BMI 36.6
--- NOTE | 2021-09-11 04:24 | ED_ITS ---
HPI - Allergic Reaction General: Chief complaint: Allergic Reaction Stated complaint: Allergice Reaction\Tongue Swelling Time Seen by Provider: 09/11/21 04:09 Source: patient Mode of arrival: ambulatory Limitations: no limitations History of Present Illness: HPI narrative: 75-year-old female states she has a history of angioedema with unknown cause. She states that starting few hours ago she started having some swelling to her tongue states it is much worse earlier she felt like her tongue was feeling her mouth she is not taking any meds at home but Benadryl states that its improved denies any shortness of breath denies any difficulty swallowing does have a slightly muffled voice has had a slight cough for over a week. Associated symptoms: Deny abdominal pain, nausea or vomiting Review of Systems Const: Denies: fever(s), chills, body aches or change in appetite Eyes: Denies: blurry vision or eye discomfort ENMT: Denies: throat pain or dental pain Card: Denies: chest pain Resp: Denies: dyspnea GI: Denies: abdominal pain, nausea, vomiting or diarrhea : Denies: dysuria Musc: Denies: neck pain or back pain Skin/Breast: Denies: rash Neuro: Denies: headache(s) Psych: Denies: depression Charlie/Lymph: Denies: easy bruising All/Imm: Denies: urticaria PFSH ED PFSH: Medical History Angioedema Diabetes HTN (hypertension) Invasive lobular carcinoma of left breast in female pT1a, pN0. Urolithiasis History of urolithiasis requiring ESWL to a right renal calculus in 2018. Did well. Surgical History History of back surgery History of extraction of renal calculus ESWL WITH STENT PLACEMENT AND STENT REMOVAL Hx of cholecystectomy Hx of hysterectomy Status post left breast lumpectomy (03/16/21) With sentinel lymph node biopsy Family History Mother , AT AGE 98 CHF (congestive heart failure) FATHER AT AGE 35 TUBERCULOSIS Social History Smoking and tobacco status: never smoked Alcohol intake: never Adopted: No Caregiver/support person: No Lives independently: Yes Marital status: / Current occupational status: retired Physical Exam Const: COMMON NORMALS: no acute distress, patient oriented x3 and healthy ap pearing HENMT: COMMON NORMALS: normocephalic and atraumatic HEAD & SCALP: normocephalic and atraumatic OTHER: Mild to moderate angioedema affecting the left side of the tongue no obstruction she is handling her secretions well no dyspnea Eye: COMMON NORMALS: Equal, round and reactive pupils present and EOMs intact bilaterally PUPIL: Yes Equal, round and reactive pupils present Neck/C-Spine: COMMON NORMALS: full ROM and supple Chest: COMMONS NORMALS: normal inspection of the chest and normal palpation of entire chest wall Resp: COMMON NORMALS: normal respiratory effort, No retractions, No use of a ccessory muscles and clear to auscultation bilaterally AUSCULTATION: clear to auscultation bilaterally Cardio: COMMON NORMALS: regular rate, regular rhythm and No murmurs present (Cardio) RATE: regular rate RHYTHM: regular rhythm GI: COMMON NORMALS: Normal to inspection, nondistended, normoactive bowel sounds present, Soft to palpation, non-tender and no masses PALPATION: Yes Soft to palpation Extremity: COMMON NORMALS: normal to inspection and full ROM Neuro: COMMON NORMALS: patient oriented x3, moves all extremities and no focal motor deficits Psych: COMMON NORMALS: mental status grossly normal, Normal thought process present and cooperative THOUGHT PROCESS: Normal thought process present Skin: COMMON NORMALS: no rashes or lesions noted and no wounds GENERAL SKIN EXAM: no rashes or lesions noted Course Vital Signs: Vital signs: Vital Signs Temperature 97.7 F 09/11/21 04:14 Pulse Rate 81 09/11/21 05:00 Respiratory Rate 22 H 09/11/21 05:00 Blood Pressure 153/70 09/11/21 05:00 Pulse Oximetry 95 09/11/21 05:00 MDM - Allergic Reaction MDM Narrative: Medical decision making narrative: Patient presents here with angioedema she states she feels much improved here she is requesting discharge I informed her that since I did give her epinephrine I would really like to watch her for 1 or 2 more hours as she could have some rebound. She states that she has had this multiple times before and states been stressing better she has never had a get worse and she wants to go home currently. I informed her she has any worsening symptoms she is to return immediately she understands agrees to plan she has a cough over the last week as well x-ray here is normal no pneumonia. Discharge Plan Discharge Patient Disposition: Home Clinical Impression: Cough Angioedema Qualifiers: Encounter type: initial encounter Qualified Code(s): T78.3XXA - Angioneurotic edema, initial encounter Condition: Stable Prescriptions: No Action metformin 500 mg tablet 500 mg PO BID RF: 0 bisoprolol-hydrochlorothiazide [Ziac] 5-6.25 mg tablet 1 tab PO DAILY RF: 0 Zyrtec 10 mg capsule 20 mg PO DAILY RF: 0 diphenhydramine HCl [Benadryl Allergy] 25 mg tablet 50 mg PO DAILY RF: 0 docusate sodium 100 mg capsule See Rx Instructions .ROUTE .COMPLEX Qty: 30 RF: 0 Zofran 4 mg tablet 4 mg PO Q6H PRN (Reason: nausea and vomiting) Qty: 20 RF: 0 hydrocodone-acetaminophen 5-325 mg tablet 1 tab PO Q6H PRN (Reason: pain) Qty: 20 RF: 0 Discharge Orders: Discharge ED (Routine); Ordered 09/11/21 Ordered By: Gerard Rodriguez Referrals: Jayden Clarke MD [Primary Care Provider] - Discharge Diet: Advance as tolerated Discharge Activity: Resume usual activity Patient Instructions: Angioedema (ED) Coding Level of Care Code ED Market Risk Specialist for Anabela Fwd Exam Comprehensive
--- NOTE | 2021-09-11 04:26 | XRR_ITS ---
PROCEDURE INFORMATION: Exam: XR Chest Exam date and time: 09/11/2021 4:26 AM Age: 75 years old Clinical indication: Prior surgery; Surgery type: Left breast lumpectomy. Gb. ; Patient HX: Allergic reaction. Tongue swelling with cough. History of left breast carcinoma. TECHNIQUE: Imaging protocol: XR of the chest. Views: 1 view. COMPARISON: 1. CR XR KUB [id number] 2020-09-06 12:53 2. CR XR KUB [id number] 2019-07-29 12:26 3. CR XR KUB [id number] 2019-01-21 13:05 4. CR XR KUB [id number] 2018-12-03 08:32 FINDINGS: Lungs: Unremarkable. No consolidation. Pleural spaces: Unremarkable. No pleural effusion. No pneumothorax. Heart/Mediastinum: Unremarkable. No cardiomegaly. Bones/joints: Mild dextroconvex thoracic curvature. Soft tissues: Left breast clips. Mediastinal lipomatosis. XR/XR chest 1V portable [id number] IMPRESSION: No acute findings.
[2021-09-11] MEDS: diphenhydrAMINE 50 mg/mL SDV 1mL IVP (04:37)
[2021-09-11] MEDS: EPINEPHrine 1 mg/mL INJ 0.3 MG IM (04:38)
[2021-09-11] MEDS: famotidine 20 mg/2 mL INJ 40 MG IVP (04:39)
[2021-09-11] MEDS: sodium chloride 0.9% (100 ml) 100 ML (04:43)
[2021-09-11] MEDS: benzonatate 100 mg Capsule PO (04:55)
[2021-09-11 05:00] VITALS: BP 153/70; PULSE 81; RESP 22; O2SAT 95
[2021-09-11 05:32] VITALS: BP 150/90; PULSE 86; RESP 17; O2SAT 93
== END 2021-09-11 05:35 | disposition home or self-care (01) ==
PROVIDERS: Emergency Provider Emergency Medicine; PCP Family Medicine
DX: T78.3XXA Angioneurotic edema, initial encounter (principal); R05.9 Cough, unspecified; E11.9 Type 2 diabetes mellitus without complications; I10 Essential (primary) hypertension; Z85.3 Personal history of malignant neoplasm of breast
CPT/HCPCS: 71045; 94640; 96372; 96374; 96375; 99284; J0171; J1200; J2930; J3490; J7611

== ENCOUNTER 2022-02-15 10:00 | Oncology outpatient (recurring) (ONCR) | payer MEDICARE, OTHER, SELFPAY | END 2022-03-08 23:59 | disposition home or self-care (01) | PROVIDERS: PCP Family Medicine; Referring Provider Family Medicine; Visit Provider Internal Medicine Medical Oncology | DX: C50.812 Malignant neoplasm of overlapping sites of left female breast (principal); Z17.0 Estrogen receptor positive status [ER+]; M85.80 Other specified disorders of bone density and structure, unspecified site | CPT/HCPCS: 80053; 82306; 85025; 99214 ==

== ENCOUNTER 2022-04-18 12:16 | Outpatient (CLI) | payer MEDICARE, OTHER, SELFPAY ==
--- NOTE | 2022-04-18 12:35 | MM_ITS ---
WS: [id number] BILATERAL 3D TOMOSYNTHESIS DIGITAL DIAGNOSTIC MAMMOGRAPHY WITH CAD CLINICAL INFORMATION: HX OF BREAST CA COMPARISON: 01/24/2021 and 12/12/2020 TECHNIQUE: Bilateral CC, MLO, and ML views. FINDINGS: Scattered fibroglandular densities bilaterally. Postoperative changes LEFT breast with lumpectomy. As sociated surgical clips. A few tiny incidental punctate calcifications in both breasts. No suspicious focal mass, asymmetry, calcifications, or architectural distortion. No evidence of heather gnancy. MM/[place] [id number] IMPRESSION: BI-RADS: 2-Benign FOLLOW UP: 1 Year Follow-up Recommend return to annual diagnostic mammography.
== END 2022-04-18 12:17 | disposition home or self-care (01) ==
LOC: RAD 12:16
PROVIDERS: PCP Family Medicine; Visit Provider Surgery
DX: Z85.3 Personal history of malignant neoplasm of breast (principal)
CPT/HCPCS: 77062

== ENCOUNTER 2022-08-16 12:08 | Oncology outpatient (recurring) (ONCR) | payer MEDICARE, OTHER, SELFPAY ==
[2022-08-16 12:56] LABS: Basophils % 0.3 %; Eosinophils # 0.2 10^3/uL (0.0-0.8); Eosinophils % 3.1 %; Hematocrit 44.4 % (37.0-47.0); Hemoglobin 14.5 g/dL (11.5-15.3); Lymphocytes % 34.3 %; Mean Corpuscular HGB Conc 32.7 g/dL (30.0-36.0); Mean Corpuscular Hemoglobin 31.5 pg (28.0-34.0); Mean Corpuscular Volume 96.5 fl (81-99); Mean Platelet Volume 9.8 fL (7.4-10.4); Monocytes # 0.5 10^3/uL (0.2-0.9); Monocytes % 8.1 %; Neutrophils # 3.18 10^3/uL (1.8-7.7); Nucleated Red Blood Cells % 0 %; Platelet Count 237 10^3/cmm (130-400); Red Cell Distribution Width 13.3 % (12.1-15.1); White Blood Count 5.9 10^3/uL (4.0-10.0)
[2022-08-16 13:20] LABS: Alanine Aminotransferase 16 U/L (0-33); Albumin Level 3.9 g/dL (3.5-5.2); Alkaline Phosphatase 74 U/L (35-105); Anion Gap 13.1 (5-19); Aspartate Amino Transferase 19 U/L (0-32); Blood Urea Nitrogen 27 mg/dL (8-23); Calcium 9.5 mg/dL (8.5-10.5); Carbon Dioxide 27 mmol/L (22-29); Chloride 107 mmol/L (98-107); Globulin 2.9 g/dL (1.3-4.6); Glucose 101 mg/dL (65-115); Osmolality Calculated 301 mOsm/kg (285-295); Potassium 4.1 mmol/L (3.5-5.1); Sodium 143 mmol/L (136-145); Total Bilirubin 0.3 mg/dL (0.15-1.2); Total Protein 6.8 g/dL (6.6-8.7)
== END 2022-09-08 23:59 | disposition home or self-care (01) ==
PROVIDERS: PCP Family Medicine; Visit Provider Internal Medicine Medical Oncology
DX: C50.812 Malignant neoplasm of overlapping sites of left female breast (principal); Z17.0 Estrogen receptor positive status [ER+]; Z79.811 Long term (current) use of aromatase inhibitors; Z79.899 Other long term (current) drug therapy
CPT/HCPCS: 36415; 80053; 85025; 99214

== ENCOUNTER 2022-09-11 12:11 | Outpatient (CLI) | payer MEDICARE, OTHER, SELFPAY ==
--- NOTE | 2022-09-11 12:23 | XR_ITS ---
WS: [id number] KUB, AP view, 09/11/2022 Clinical Data: STONES Comparison: KUB, 09/06/2020 Findings: No abnormal intraabdominal masses or calcifications are seen. There is no dilatated small bowel or ev idence of obstruction. Bowel gas obscures minimal detail over both kidneys. There is a levoscoliosis of the lumbar spine wit h a laminectomy at L5. XR/XR KUB [id number] Impression: Negative KUB.
== END 2022-09-11 12:12 | disposition home or self-care (01) ==
LOC: RAD 12:17
PROVIDERS: PCP Family Medicine; Visit Provider Urology
DX: N20.9 Urinary calculus, unspecified (principal)
CPT/HCPCS: 74018; 81003; 99213

== ENCOUNTER 2023-02-12 11:38 | Oncology outpatient (recurring) (ONCR) | payer MEDICARE, OTHER, SELFPAY ==
[2023-02-12 11:57] VITALS: BP 139/82; PULSE 70; RESP 18; TEMP 37.1; O2SAT 99
[2023-02-12 12:11] LABS: Basophils % 0.4 %; Eosinophils # 0.2 10^3/uL (0.0-0.8); Hemoglobin 13.4 g/dL (11.5-15.3); Lymphocytes # 1.9 10^3/uL (0.8-4.8); Lymphocytes % 32.8 %; Mean Corpuscular HGB Conc 31.9 g/dL (30.0-36.0); Mean Corpuscular Hemoglobin 30.5 pg (28.0-34.0); Mean Corpuscular Volume 95.7 fl (81-99); Mean Platelet Volume 9.6 fL (7.4-10.4); Monocytes # 0.5 10^3/uL (0.2-0.9); Monocytes % 8.2 %; Neutrophils # 3.13 10^3/uL (1.8-7.7); Neutrophils % 55.4 %; Nucleated Red Blood Cells % 0 %; Platelet Count 227 10^3/cmm (130-400); Red Blood Count 4.39 10^6/uL (4.1-5.3); Red Cell Distribution Width 13.8 % (12.1-15.1); White Blood Count 5.6 10^3/uL (4.0-10.0)
[2023-02-12 12:36] LABS: Alanine Aminotransferase 12 U/L (0-33); Albumin Level 3.6 g/dL (3.5-5.2); Alkaline Phosphatase 67 U/L (35-105); Blood Urea Nitrogen 20 mg/dL (8-23); Calcium 8.6 mg/dL (8.5-10.5); Carbon Dioxide 21 mmol/L (22-29); Chloride 107 mmol/L (98-107); Glucose 91 mg/dL (65-115); Osmolality Calculated 290 mOsm/kg (285-295); Sodium 139 mmol/L (136-145); Total Bilirubin 0.3 mg/dL (0.15-1.2); Total Protein 6.6 g/dL (6.6-8.7)
[2023-02-12 12:39] LABS: Anion Gap 15.2 (5-19); Aspartate Amino Transferase 196 U/L (0-32); Potassium 4.2 mmol/L (3.5-5.1)
== END 2023-03-08 23:59 | disposition home or self-care (01) ==
PROVIDERS: PCP Family Medicine; Visit Provider Internal Medicine Medical Oncology
DX: C50.812 Malignant neoplasm of overlapping sites of left female breast (principal); Z17.0 Estrogen receptor positive status [ER+]; Z79.811 Long term (current) use of aromatase inhibitors; Z79.899 Other long term (current) drug therapy
CPT/HCPCS: 36415; 80053; 85025; 99213

== ENCOUNTER 2023-05-08 13:44 | Outpatient (CLI) | payer MEDICARE, OTHER, SELFPAY ==
--- NOTE | 2023-05-08 13:53 | MM_ITS ---
WS: [id number] BILATERAL 3D TOMOSYNTHESIS DIGITAL DIAGNOSTIC MAMMOGRAPHY WITH CAD CLINICAL INFORMATION: surveillance COMPARISON: 2021 TECHNIQUE: Bilateral CC, MLO, and ML views. FINDINGS: Fatty replaced breasts bilaterally. Postoperative changes LEFT breast lumpectomy with surgical clips. A few incidental punctate calcifications. No suspicious focal mass, asymmetry, calcifications, or architectural distortion. No evidence of heather gnancy. IMPRESSION: MM/[place] [id number] BI-RADS: 2-Benign FOLLOW UP: 1 Year Follow-up Recommend return to annual diagnostic mammography.
== END 2023-05-08 13:45 | disposition home or self-care (01) ==
PROVIDERS: PCP Family Medicine; Visit Provider Internal Medicine Medical Oncology
DX: C50.812 Malignant neoplasm of overlapping sites of left female breast (principal)
CPT/HCPCS: 77062; G0279

== ENCOUNTER 2023-07-23 13:56 | Outpatient (CLI) | payer MEDICARE, OTHER, SELFPAY ==
--- NOTE | 2023-07-23 14:30 | XR_ITS ---
WS: [id number] SCREENING DEXA SCAN [employer] CLINICAL INFORMATION: compare to previous COMPARISON: 2020 FINDINGS: LEFT forearm bone mineral density measures 0.428. This corresponds to a T score score of -5.1 and Z s core of -2.4. Left femoral neck bone mineral density measures 0.747 g/cm2. This corresponds to a T score of -2.1 an d Z score of -0.7. Right femoral neck bone mineral density measures 0.757 g/cm2. This corresponds to a T score -2.0of an d Z score of -0.6. Mean femoral neck bone mineral density measures 0.752 g/cm2. This corresponds to a T score of -2.0 an d Z score of -0.6. IMPRESSION: Osteoporosis LEFT forearm. Osteopenia femoral necks. Patient's FRAX calculated 10 year probability for major osteoporotic fracture is 20.0% and osteoporot ic hip fracture is 7.2%. Bone mineral density femoral necks decreased -2.3%
== END 2023-07-23 13:57 | disposition home or self-care (01) ==
LOC: RAD 13:56
PROVIDERS: PCP Family Medicine; Visit Provider Nurse Practitioner Family
DX: M81.0 Age-related osteoporosis without current pathological fracture (principal); C50.812 Malignant neoplasm of overlapping sites of left female breast
CPT/HCPCS: 77080

== ENCOUNTER 2023-08-14 13:21 | Oncology outpatient (recurring) (ONCR) | payer MEDICARE, OTHER, SELFPAY | END 2023-09-08 23:59 | disposition home or self-care (01) | LOC: ONCMED 13:22 | PROVIDERS: PCP Family Medicine; Visit Provider Internal Medicine Medical Oncology | DX: C50.812 Malignant neoplasm of overlapping sites of left female breast (principal); Z17.0 Estrogen receptor positive status [ER+]; Z79.811 Long term (current) use of aromatase inhibitors; Z79.899 Other long term (current) drug therapy | CPT/HCPCS: 99213 ==

== ENCOUNTER 2024-02-17 09:56 | Oncology outpatient (recurring) (ONCR) | payer MEDICARE, OTHER, SELFPAY ==
[2024-02-14 10:11] VITALS: BP 130/84; TEMP 36.2
[2024-02-14] MEDS: denosumab 60 mg SDV SUBCUT (10:12)
== END 2024-03-08 23:59 | disposition home or self-care (01) ==
PROVIDERS: PCP Family Medicine; Visit Provider Internal Medicine Medical Oncology
DX: C50.812 Malignant neoplasm of overlapping sites of left female breast (principal); Z17.0 Estrogen receptor positive status [ER+]; Z79.811 Long term (current) use of aromatase inhibitors; Z79.899 Other long term (current) drug therapy; M85.80 Other specified disorders of bone density and structure, unspecified site
CPT/HCPCS: 96372; 99213; J0897

== ENCOUNTER 2024-03-19 09:44 | Oncology outpatient (recurring) (ONCR) | payer MEDICARE, OTHER, SELFPAY ==
[2024-03-19 10:16] LABS: Basophils % 0.4 %; Eosinophils # 0.2 10^3/uL (0.0-0.8); Eosinophils % 3.1 %; Hematocrit 44.8 % (36-47); Lymphocytes # 1.7 10^3/uL (0.8-4.8); Lymphocytes % 30.7 %; Mean Corpuscular HGB Conc 31.9 g/dL (30-55); Mean Corpuscular Hemoglobin 30.6 pg (27-33); Mean Corpuscular Volume 95.9 fl (85-98); Mean Platelet Volume 9.3 fL (7.4-10.4); Monocytes # 0.5 10^3/uL (0.2-0.9); Monocytes % 8.5 %; Neutrophils # 3.11 10^3/uL (1.8-7.7); Neutrophils % 57.1 %; Nucleated Red Blood Cells % 0 %; Platelet Count 265 10^3/cmm (157-399); Red Blood Count 4.67 10^6/uL (3.85-5.65); Red Cell Distribution Width 13.4 % (12.1-15.1); White Blood Count 5.44 10^3/uL (3.29-11.43)
[2024-03-19 10:37] LABS: Alanine Aminotransferase 9 U/L (0-33); Albumin Level 3.6 g/dL (3.5-5.2); Alkaline Phosphatase 79 U/L (35-105); Anion Gap 12.2 (5-19); Aspartate Amino Transferase 16 U/L (0-32); Blood Urea Nitrogen 22 mg/dL (8-23); Calcium 8.9 mg/dL (8.5-10.5); Carbon Dioxide 27 mmol/L (22-29); Chloride 106 mmol/L (98-107); Globulin 3.6 g/dL (1.3-4.6); Glucose 108 mg/dL (65-115); Osmolality Calculated 296 mOsm/kg (285-295); Potassium 4.2 mmol/L (3.5-5.1); Sodium 141 mmol/L (136-145); Total Bilirubin 0.5 mg/dL (0.15-1.2); Total Protein 7.2 g/dL (6.6-8.7)
[2024-03-19 10:55] LABS: Hepatitis A Antibody IgM Non-Reactive (Nonreactive); Hepatitis B Core AB, Total Non-Reactive (Nonreactive); Hepatitis B Surface AB < 3.5 (11.5-1000); Hepatitis B Surface Antigen Non-Reactive (Nonreactive); Hepatitis C Virus Antibody Non-Reactive (Nonreactive)
== END 2024-04-08 23:59 | disposition home or self-care (01) ==
LOC: ONCMED 09:44
PROVIDERS: Internal Medicine; PCP Family Medicine; Visit Provider Internal Medicine Medical Oncology
DX: C50.812 Malignant neoplasm of overlapping sites of left female breast (principal); Z79.811 Long term (current) use of aromatase inhibitors
CPT/HCPCS: 36415; 80053; 85025; 86705; 86706; 86709; 86803; 87340

== ENCOUNTER 2024-04-09 13:42 | Inpatient (IN) | payer MEDICARE, OTHER, SELFPAY ==
[2024-04-09] VITALS (22 sets, daily range): BP systolic 106–156; BP diastolic 67–117; PULSE 74–99; RESP 9–27; TEMP 36.9–37.3; O2SAT 93–99; BMI 37.8
--- NOTE | 2024-04-09 14:24 | P.HP_ITS ---
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 Clarke PCP who called me for direct admit for treatment with IVIG. At the time of evaluation patient is hemodynamically stable she is History of CHF COPD does not smoke or drink alcohol, fairly active for her age, patient started experiencing numbness and tingling 2 weeks ago in her lower extremities, she has been experiencing diarrhea which she is stating is chronic in nature, recently suffered with flu a week ago. Review of Systems Const: Denies: fever(s) Eyes: Denies: change in vision ENMT: Denies: throat pain Card: Denies: chest pain Resp: Denies: dyspnea GI: Denies: abdominal pain : Denies: flank pain or urinary frequency Musc: Denies: neck pain Skin/Breast: Denies: rash Neuro: Reports: restless legs Medications/Allergies Home Medications Medication Instructions Recorded Confirmed Last Taken Type bisoprolol 5 1 tab PO DAILY 09/06/20 04/09/24 03/15/21 17:00 History mg-hydrochlorothiazide 6.25 mg tablet (Ziac) cetirizine 10 mg capsule (Zyrtec) 20 mg PO DAILY 03/10/21 04/09/24 03/15/21 08:00 History diphenhydramine HCl 25 mg tablet 50 mg PO DAILY 03/10/21 04/09/24 03/15/21 17:00 History (Benadryl Allergy) biotin 1 mg capsule 1 mg PO DAILY 09/11/22 04/09/24 Unknown History cholecalciferol (vitamin D3) 10 10 mcg PO DAILY 09/11/22 04/09/24 Unknown History mcg (400 unit) capsule atorvastatin 10 mg tablet 5 mg PO Q7D 02/12/23 04/09/24 Unknown History anastrozole 1 mg tablet 1 mg PO DAILY #90 tabs 02/24/24 04/09/24 Unknown Rx Allergies Allergy/AdvReac Type Severity Reaction Status Date / Time latex Allergy Unknown Unknown Verified 04/09/24 12:39 nitrile Allergy Unknown Unknown Verified 04/09/24 12:39 PFSH Acute PFSH: Medical History Breast cancer Osteopenia Hyperlipidemia Familial tremor Urolithiasis History of urolithiasis requiring ESWL to a right renal calculus in 2018. Did well. Diabetes HTN (hypertension) Angioedema Surgical History Status post left breast lumpectomy (03/16/21) With sentinel lymph node biopsy History of back surgery Hx of cholecystectomy Hx of hysterectomy History of extraction of renal calculus ESWL WITH STENT PLACEMENT AND STENT REMOVAL Family History Mother , AT AGE 98 Congestive heart failure (CHF) FATHER AT AGE 35 TUBERCULOSIS Social History Smoking and tobacco/nicotine status: never used tobacco/nicotine Alcohol intake: never Adopted: No Caregiver/support person: No Lives independently: Yes Marital status: / Current occupational status: retired Physical Exam Narrative: Patient has tremors mostly in her right hand Nonfocal neuroexam GCS 15 Awake and alert Euvolemic Abdomen soft Hemodynamic stable S1, S2 No active Rester distress Reflexes equivocal A&P Assessment and plan (1) 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 Positive GD 1 a antibodies with IgM Nerve conduction studies positive as well Start IVIG 0.4 mg/kg body weight for 5 days Monitor for swallow capacity which should not be below 20 mill per kilo which will need prophylactic intubation Monitor in ICU Check B12 TSH and hemoglobin A1c Patient has been experiencing tingling and numbness of lower extremities She has chronic history of essential tremors right upper extremity worse than rest of the extremities Awake and alert No history of CHF or IN Full code Cardiac diet Asked RT to check forced vital capacity on daily basis which should not be less than 2 L at least, check nif as well DVT prophylaxis added Hypertension: Continue Ziac Spoke with the PCP, 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
--- NOTE | 2024-04-09 14:38 | CTR_ITS ---
PROCEDURE INFORMATION: Exam: CT Head Without Contrast Exam date and time: 04/09/2024 4:36 PM Age: 78 years old Clinical indication: Condition or disease; Other: Guillain barre TECHNIQUE: Imaging protocol: Computed tomography of the head without contrast. Radiation optimization: All CT scans at this facility use at least one of these dose optimization techniques: automated exposure control; mA and/or kV adjustment per patient size (includes targeted exams where dose is matched to clinical indication); or iterative reconstruction. COMPARISON: No relevant prior studies available. RADIATION DOSE METRICS: Total DLP (mGy-cm): 1083.2 FINDINGS: Brain: No hemorrhage. No edema. Mild diffuse cerebral atrophy and sequela of chronic small vessel ischemic disease. No mass effect. Cerebral ventricles: No ventriculomegaly. Paranasal sinuses: Visualized sinuses are unremarkable. No fluid levels. Mastoid air cells: Visualized mastoid air cells are well aerated. Bones: Unremarkable. No acute fracture. Soft tissues: Unremarkable. CT/CT head wo con* [id number] IMPRESSION: No acute intracranial abnormality.
--- NOTE | 2024-04-09 15:32 | PC.RESP ---
FVC PERD. 2.80 pt. fvc 2.62. elbert well
[2024-04-09 15:56] LABS: Thyroid Stimulating Hormone 2.12 uIU/mL (0.27-4.20); Vitamin B12 172 pg/mL (232-1245)
[2024-04-09 16:03] LABS: Estmated Average Glucose 120; Hemoglobin A1C 5.8 % (4.0-6.0)
--- NOTE | 2024-04-09 16:16 | P.CONIM_ITS ---
Providers/Reason For Consult Consulting Physician/Specialty*: Silvio Lopez MD neurology and epilepsy Reason for Consult*: Acute onset of hand and feet numbness with concerns for progression in numbness and tingling and change in reflexes performed by Dr. 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 NCV study performed on the bilateral upper and lower extremities revealed motor and sensory axonal polyneuropathy with possible superimposed distal median nerve entrapment at the wrist suggestive of superimposed bilateral carpal tunnel syndrome and possibility of axonal inflammatory polyneuropathy cannot be excluded. Attending Physician: Pola Ladd MD Primary Care Provider: Jayden Clarke MD History of Present Illness History of Present Illness Isatu Joaquin is a 78 year old female with a history of breast cancer 2020, type 2 diabetes mellitus, hypertension, and osteoporosis. Patient also reports a history of [place] area manifested as episodic facial swelling and tongue and lip swelling treated with Benadryl and Zyrtec. The patient was evaluated by her family physician secondary to complaints of acute onset of hand and feet numbness. The patient was reevaluated with complaints of progression in her symptoms. In view of the patient's reports of progression in the numbness and tingling and change in reflexes performed by Dr. 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 NCV study performed on the bilateral upper and lower extremities on 04/09/2024 revealed a motor and sensory axonal polyneuropathy with possible superimposed distal median nerve entrapment at the wrist suggestive of superimposed bilateral carpal tunnel syndrome as well as a motor axonal peroneal neuropathy nonlocalized and motor and sensory axonal tibial neuropathy, nonlocalized and therefore the possibility of axonal inflammatory polyneuropathy cold not be excluded. The patient was admitted for IVIG treatment and to monitor for any progression in her symptoms. Drug allergies: Latex type reaction unknown Nitrile type reaction unknown Current medications Prolia for osteoporosis Vitamin D3 400 international units p.o. daily Benadryl 25 mg p.o. nightly for Urticra Zyrtec 10 mg tablets 2 p.o. daily for Urticra Lipitor 10 mg tablets 1/2 tablet p.o. every week Anastrozole 1 mg p.o. daily Bisoprolol 5 mg/hydrochlorothiazide 6.25 mg p.o. daily Past medical history: Breast cancer 2020 Osteoporosis Familial essential tremor Hypertension Type 2 diabetes mellitus Kidney stones x 3 Urticra manifested as facial swelling and tongue swelling Habits: None Family history: Nephew who recently from heart disease Review of Systems General: Reports: 10 or more systems reviewed and unremarkable except in HPI and below Medications/Allergies Home Medications Medication Instructions Recorded Confirmed Last Taken Type bisoprolol 5 1 tab PO DAILY 09/06/20 04/09/24 03/15/21 17:00 History mg-hydrochlorothiazide 6.25 mg tablet (Ziac) cetirizine 10 mg capsule (Zyrtec) 20 mg PO DAILY 03/10/21 04/09/24 03/15/21 08:00 History diphenhydramine HCl 25 mg tablet 50 mg PO DAILY 03/10/21 04/09/24 03/15/21 17:00 History (Benadryl Allergy) biotin 1 mg capsule 1 mg PO DAILY 09/11/22 04/09/24 Unknown History cholecalciferol (vitamin D3) 10 10 mcg PO DAILY 09/11/22 04/09/24 Unknown History mcg (400 unit) capsule atorvastatin 10 mg tablet 5 mg PO Q7D 02/12/23 04/09/24 Unknown History anastrozole 1 mg tablet 1 mg PO DAILY #90 tabs 02/24/24 04/09/24 Unknown Rx Allergies Allergy/AdvReac Type Severity Reaction Status Date / Time latex Allergy Unknown Unknown Verified 04/09/24 12:39 nitrile Allergy Unknown Unknown Verified 04/09/24 12:39 PFSH Acute PFSH: Medical History Breast cancer Osteopenia Hyperlipidemia Familial tremor Urolithiasis History of urolithiasis requiring ESWL to a right renal calculus in 2018. Did well. Diabetes HTN (hypertension) Angioedema Surgical History Status post left breast lumpectomy (03/16/21) With sentinel lymph node biopsy History of back surgery Hx of cholecystectomy Hx of hysterectomy History of extraction of renal calculus ESWL WITH STENT PLACEMENT AND STENT REMOVAL Family History Mother , AT AGE 98 Congestive heart failure (CHF) FATHER AT AGE 35 TUBERCULOSIS Social History Smoking and tobacco/nicotine status: never used tobacco/nicotine Alcohol intake: never Adopted: No Caregiver/support person: No Lives independently: Yes Marital status: / Current occupational status: retired Physical Exam Narrative: The patient is alert and oriented x 3. Speech fluent. Head normocephalic. Neck supple. Pupils 3 to 4 mm round reactive light and accommodation. Extraocular movements intact. Motor testing 5/5 bilaterally except for 4/5 strength in the abductor pollicis brevis muscles bilaterally. There was no drift. Patient did have a mild postural tremor in her hands bilaterally. There was some mild atrophy of the abductor pollicis brevis muscles bilaterally. There were no obvious fasciculations. Deep tendon reflexes 2+ in the upper extremities and 2+ patellar reflexes bilaterally. Achilles were areflexic bilaterally. Plantar responses flexor bilaterally. There was no clonus. Sensory examination revealed decreased pinprick in her toes to her distal feet and soles of her feet in a stocking glove distribution. There was also decreased pinprick in the first digit of the hands bilaterally up to her proximal thumbs. Pinprick was intact in the other extremities. Proprioception was intact in all extremities. Throat clear. Lungs clear. Heart regular rhythm and rate. Extremities were negative for clubbing cyanosis or edema. Pulses 2+ in the lower extremities. Pulses 3+ in upper extremities. 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 Acute onset of hand and feet numbness with concerns for progression in numbness and tingling and change in reflexes over 1 to [address] 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 NCV study performed on the bilateral upper and lower extremities revealed motor and sensory axonal polyneuropathy with possible superimposed distal median nerve entrapment at the wrist suggestive of superimposed bilateral carpal tunnel syndrome and possibility of axonal inflammatory polyneuropathy cannot be excluded. Abnormal NCV of the bilateral upper and lower extremities 04/09/2024 Impression: Electrophysiologically this NCV study of the bilateral upper and lower extrem ities reveals the followin. Bilateral motor axonal peroneal neuropathy, nonlocalized 2. Bilateral motor and sensory axonal tibial neuropathy, nonlocalized 3. Bilateral motor and sensory axonal median neuropathy with possible superimposed median nerve entrapment at the wrist, right side greater than left. Therefore the possibility of superimposed bilateral carpal tunnel syndrome should also be considered and therefore further clinical correlation is required. 4. 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 Plan: 1. Agree with patient being admitted to the intensive care unit for evaluation and treatment with IVIG 0.4 mg/kg/day IV for 5 days consecutively 2. Monitor patient's forced vital capacity twice a day and contact hospitalist if the patient's forced vital capacity is less than 2 L 3. Neurochecks and vital signs every 4 hours 4. IV normal saline 75 cc/h during IVIG infusion and 1 hour post IVIG infusion each day to minimize renal issues that can be related with IVIG infusion 5. Recommend patient undergo noncontrast head CT if not already performed 6. Recommend lumbar puncture to be performed under fluoroscopy by radiology to assess opening and closing pressure and evaluate for chronic infection and to obtain CSF for glucose, protein and VDRL 7. 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 syndrome. 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
[2024-04-09] MEDS: IMMUNE GLOBULIN 40 GM/400 ML IV (17:24)
--- NOTE | 2024-04-09 18:53 | PC.NURSE ---
Respiratory to do force vital capacity test daily and contact Dr. Montes De Oca if below 2L.
[2024-04-09] MEDS: cyanocobalamin 1,000 mcg/mL SDV 1000 MCG IM (19:44)
[2024-04-09] MEDS: sodium chloride 0.9% 1,000 ML 75 ML IV (19:45)
[2024-04-10] VITALS (31 sets, daily range): BP systolic 120–152; BP diastolic 62–109; PULSE 69–103; RESP 16–26; TEMP 36.7–36.8; O2SAT 91–98; BMI 37.8
[2024-04-10 04:17] LABS: Basophils % 0.4 %; Eosinophils # 0.1 10^3/uL (0.0-0.8); Eosinophils % 1.3 %; Hematocrit 38.6 % (36-47); Lymphocytes % 23.1 %; Mean Corpuscular HGB Conc 32.9 g/dL (30-55); Mean Corpuscular Hemoglobin 31.2 pg (27-33); Mean Corpuscular Volume 94.8 fl (85-98); Mean Platelet Volume 9.5 fL (7.4-10.4); Monocytes # 0.2 10^3/uL (0.2-0.9); Monocytes % 5.2 %; Neutrophils % 69.8 %; Nucleated Red Blood Cells % 0 %; Platelet Count 208 10^3/cmm (157-399); Red Blood Count 4.07 10^6/uL (3.85-5.65); Red Cell Distribution Width 13.6 % (12.1-15.1); White Blood Count 4.45 10^3/uL (3.29-11.43)
[2024-04-10 04:37] LABS: Anion Gap 12.9 (5-19); Blood Urea Nitrogen 29 mg/dL (8-23); C Reactive Protein 5.2 mg/L (0.0-4.9); Calcium 8.4 mg/dL (8.5-10.5); Carbon Dioxide 22 mmol/L (22-29); Chloride 110 mmol/L (98-107); Creatinine Clr Calc Pharmacy 41.8349; Glucose 130 mg/dL (65-115); Magnesium 1.9 mg/dL (1.7-2.3); Osmolality Calculated 300 mOsm/kg (285-295); Potassium 3.9 mmol/L (3.5-5.1); Sodium 141 mmol/L (136-145)
[2024-04-10] MEDS: hydroCHLOROthiazide 25 mg Tablet 6.25 MG PO (10:28)
[2024-04-10] MEDS: cyanocobalamin 1,000 mcg/mL SDV 1000 MCG IM (10:28)
--- NOTE | 2024-04-10 11:38 | PC.RESP ---
fvc 2.62
--- NOTE | 2024-04-10 12:17 | PM.PN ---
Subjective Subjective: History of Present Illness Isatu Joaquin is a 78 year old female with a history of breast cancer 2019, type 2 diabetes mellitus, hypertension, and osteoporosis. Patient also reports a history of [place] area manifested as episodic facial swelling and tongue and lip swelling treated with Benadryl and Zyrtec. The patient was evaluated by her family physician secondary to complaints of acute onset of hand and feet numbness. The patient was reevaluated with complaints of progression in her symptoms. In view of the patient's reports of progression in the numbness and tingling and change in reflexes performed by Dr. 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 NCV study performed on the bilateral upper and lower extremities on 04/09/2024 revealed a motor and sensory axonal polyneuropathy with possible superimposed distal median nerve entrapment at the wrist suggestive of superimposed bilateral carpal tunnel syndrome as well as a motor axonal peroneal neuropathy nonlocalized and motor and sensory axonal tibial neuropathy, nonlocalized and therefore the possibility of axonal inflammatory polyneuropathy cold not be excluded. The patient was admitted for IVIG treatment and to monitor for any progression in her symptoms. The patient received first round of IVIG on 04/09/2024. Patient reports no side effects from the medication and stated that she is feeling better. She was without complaints this morning. Drug allergies: Latex type reaction unknown Nitrile type reaction unknown Current Home medications Prolia for osteoporosis Vitamin D3 400 international units p.o. daily Benadryl 25 mg p.o. nightly for Urticra Zyrtec 10 mg tablets 2 p.o. daily for Urticra Lipitor 10 mg tablets 1/2 tablet p.o. every week Anastrozole 1 mg p.o. daily Bisoprolol 5 mg/hydrochlorothiazide 6.25 mg p.o. daily Past medical history: Breast cancer 2019 Osteoporosis Familial essential tremor Hypertension Type 2 diabetes mellitus Kidney stones x 3 Urticra manifested as facial swelling and tongue swelling Habits: None Family history: Nephew who recently from heart disease Review of Systems General: Reports: 10 or mor e systems reviewed and unremarkable except in HPI and below Vitals/I&O/Wt Last Vital Signs Temp 99.1 F 04/09/24 23:30 Pulse 81 04/10/24 11:30 Resp 21 H 04/10/24 11:30 BP 148/88 04/10/24 10:00 Pulse Ox 96 04/10/24 11:30 O2 Del Method Room Air 04/10/24 08:21 04/09/24 04/10/24 04/10/24 22:59 06:59 14:59 Intake Total 640 / 640 120 / 120 Output Total 400 / 400 Balance 240 / 240 120 / 120 Weight last 48 hrs Weight 200 lb Weight 200 lb Physical Exam Narrative: The patient is alert and oriented x 3. Speech fluent. Head normocephalic. Neck supple. Pupils 3 to 4 mm round reactive light and accommodation. Extraocular movements intact. Motor testing 5/5 bilaterally except for 4/5 strength in the abductor pollicis brevis muscles bilaterally. There was no drift. Patient did have a mild postural tremor in her hands bilaterally. There was some mild atrophy of the abductor pollicis brevis muscles bilaterally. There were no obvious fasciculations. Deep tendon reflexes 2+ in the upper extremities and 2+ patellar reflexes bilaterally. Achilles were areflexic bilaterally. Plantar responses flexor bilaterally. There was no clonus. Sensory examination revealed decreased pinprick in her toes to her distal feet and soles of her feet in a stocking glove distribution. There was also decreased pinprick in the first digit of the hands bilaterally up to her proximal thumbs. Pinprick was intact in the other extremities. Proprioception was intact in all extremities. Throat clear. Lungs clear. Heart regular rhythm and rate. Extremities were negative for clubbing cyanosis or edema. Pulses 2+ in the lower extremities. Pulses 3+ in upper extremities. 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 Acute onset of hand and feet numbness with concerns for progression in numbness and tingling and change in reflexes over 1 to [address] 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 NCV study performed on the bilateral upper and lower extremities revealed motor and sensory axonal polyneuropathy with possible superimposed distal median nerve entrapment at the wrist suggestive of superimposed bilateral carpal tunnel syndrome and possibility of axonal inflammatory polyneuropathy cannot be excluded. Abnormal NCV of the bilateral upper and lower extremities 04/09/2024 Impression: Electrophysiologically this NCV study of the bilateral upper and lower extremities reveals the followin. Bilateral motor axonal peroneal neuropathy, nonlocalized 2. Bilateral motor and sensory axonal tibial neuropathy, nonlocalized 3. Bilateral motor and sensory axonal median neuropathy with possible superimposed median nerve entrapment at the wrist, right side greater than left. Therefore the possibility of superimposed bilateral carpal tunnel syndrome should also be considered and therefore further clinical correlation is required. 4. 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 Plan: 1. Continue current treatment and complete 5 days of IVIG. 2. Schedule patient for follow-up in the [facility] neurology clinic 2 weeks after discharge 3. 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
--- NOTE | 2024-04-10 12:43 | P.PN_ITS ---
Subjective 2 Subjective: No overnight events /Requested on 2.6 L Patient is doing well hemodynamically stable Will request stool studies I will start her anastrozole as well Transfer out of ICU to [facility] Vitals/I&O/Wt Last Vital Signs Temp 99.1 F 04/09/24 23:30 Pulse 81 04/10/24 11:30 Resp 21 H 04/10/24 11:30 BP 148/88 04/10/24 10:00 Pulse Ox 96 04/10/24 11:30 O2 Del Method Room Air 04/10/24 08:21 04/09/24 04/10/24 04/10/24 22:59 06:59 14:59 Intake Total 640 / 640 120 / 120 Output Total 400 / 400 Balance 240 / 240 120 / 120 Weight last 48 hrs Weight 90.718 kg Weight 90.718 kg Physical Exam 2 Narrative: Awake and alert GCS 15 Pleasant cough No sign of respite distress Complaining of numbness tingling of lower extremity Reflexes equivocal S1, S2 Currently on room air Data 04/10/24 03:44 04/10/24 03:44 A&P Assessment and plan (1) 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 Reflexes equivocal Forced vital capacity 2.6 L, 2.7 L yesterday Check every shift Can be transferred out of ICU Hemodynamically stable Continue IVIG, day 2 of IVIG today IVIG started 04/09 Antibodies positive, B12 deficiency nerve conduction study consistent with B12 deficiency most likely with motor and sensory axonal nephropathy Started B12 supplementation Chronic diarrhea requested stool studies Full code Cardiac diet Transfer out of ICU to [facility] I had requested LP but patient is not interested in LP I will go ahead start DVT prophylaxis Patient most likely will go home after 5 days of IVIG Breast cancer continue anastrozole Attestations 2 Medical Necessity Statement*: Continue medical management Diagnoses Axonal polyneuropathy G62.9 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
--- NOTE | 2024-04-10 13:33 | PC.NURSE ---
Transfer Note Patient transferred to med-surg room 262 from ICU via wheelchair. Handoff report given to Leticia. Patient oriented to environment and equipment. Covering service notified. Orders reviewed and will continue to monitor. Family notified regarding patient transfer. Upon atransfer patient is alert/oriented x4 on room air. No wounds or skin issues noted at this time. All belongings transported with patient and placed at bedside.
--- NOTE | 2024-04-10 14:44 | PC.SOCIAL ---
IMM Updated Updated pt on IMM. No questions voiced. Provided pt a copy. Initialed, dated, & timed a copy & placed in chart.
[2024-04-10] MEDS: enoxaparin 40 mg/0.4 mL Syringe SUBCUT (14:47)
[2024-04-10] MEDS: IMMUNE GLOBULIN 40 GM/400 ML IV (18:11)
[2024-04-10] MEDS: sodium chloride 0.9% 1,000 ML 75 ML IV (20:53)
[2024-04-11] VITALS (8 sets, daily range): BP systolic 121–141; BP diastolic 65–84; PULSE 17–80; RESP 14–93; TEMP 36.6–36.8; O2SAT 91–96
[2024-04-11 03:05] LABS: Glucose Point of Care 131 mg/dL (70-110)
[2024-04-11] MEDS: ondansetron 2 mg/ML SDV 2 mL 4 MG IVP ×2 (03:08→14:52)
[2024-04-11 03:37] LABS: Basophils % 0.3 %; Eosinophils # 0.2 10^3/uL (0.0-0.8); Eosinophils % 4.5 %; Hematocrit 42.1 % (36-47); Lymphocytes # 1.7 10^3/uL (0.8-4.8); Lymphocytes % 45.6 %; Mean Corpuscular HGB Conc 31.1 g/dL (30-55); Mean Corpuscular Hemoglobin 30.5 pg (27-33); Mean Corpuscular Volume 97.9 fl (85-98); Mean Platelet Volume 9.6 fL (7.4-10.4); Monocytes # 0.3 10^3/uL (0.2-0.9); Neutrophils # 1.53 10^3/uL (1.8-7.7); Neutrophils % 40.3 %; Nucleated Red Blood Cells % 0 %; Platelet Count 192 10^3/cmm (157-399); Red Cell Distribution Width 13.6 % (12.1-15.1); White Blood Count 3.79 10^3/uL (3.29-11.43)
--- NOTE | 2024-04-11 03:43 | PC.NURSE ---
Patient received Immune Globulin 40gm in 400ml q24h, today was day 2 out of 5 of the dosing. Finished earlier and was running on normal saline and line infiltrated in right forearm. New line was put in left forearm and back to running on NS at 75ml/h. Patient had complain of nausea and was given Zofran. Vital signs were B/P 151/93, R-20, P-85, T- 97.9, Spo2- 97% on RA. Patient stated that she normally takes their antihypertensive at HS at home but has been receiving them during the day while here in the hospital. No c/o of chest pain and is starting to feel better. Dr. Nielson was updated and notifed of the situation, no new orders at this moment in time.
[2024-04-11 04:04] LABS: Anion Gap 12.2 (5-19); Blood Urea Nitrogen 21 mg/dL (8-23); Calcium 8.5 mg/dL (8.5-10.5); Carbon Dioxide 24 mmol/L (22-29); Chloride 109 mmol/L (98-107); Creatinine Clr Calc Pharmacy 46.0184; Glucose 115 mg/dL (65-115); Osmolality Calculated 296 mOsm/kg (285-295); Potassium 4.2 mmol/L (3.5-5.1); Sodium 141 mmol/L (136-145)
--- NOTE | 2024-04-11 08:30 | P.PN_ITS ---
Subjective 2 Subjective: Seen this morning. Overnight patient states she got dizzy when she walked to the bathroom however is feeling better at this time. She says overall she feels weak and it is not a certain area of the body. She is able to walk steady on her feet however feels she is generally deconditioned. Vitals/I&O/Wt Last Vital Signs Temp 98.0 F 04/11/24 07:40 Pulse 69 04/11/24 07:40 Resp 14 04/11/24 07:40 BP 121/65 04/11/24 07:40 Pulse Ox 94 04/11/24 07:40 O2 Del Method Room Air 04/11/24 07:40 04/10/24 04/11/24 04/11/24 22:59 06:59 14:59 Intake Total 1640 / 1880 Balance 1640 / 1880 Weight last 48 hrs Weight 93.213 kg Weight 90.718 kg Weight 90.718 kg Physical Exam 2 Narrative: Awake and alert GCS 15 Pleasant cough No sign of respite distress Not complaining of numbness or tingling. 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 Hemodynamically stable Continue IVIG, day 3 of IVIG today IVIG started 04/09 Antibodies positive, B12 deficiency nerve conduction study consistent with B12 deficiency most likely with motor and sensory axonal nephropathy Started B12 supplementation Chronic diarrhea requested stool studies Full code Cardiac diet Transfer out of ICU to [facility] I had requested LP but patient is not interested in LP Continue on DVT prophylaxis. Patient most likely will go home after 5 days of IVIG Breast cancer continue anastrozole Check physical therapy consult. 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
[2024-04-11] MEDS: hydroCHLOROthiazide 25 mg Tablet 6.25 MG PO (08:42)
[2024-04-11] MEDS: anastrozole 1 mg Tablet PO (08:42)
[2024-04-11] MEDS: cyanocobalamin 1,000 mcg/mL SDV 1000 MCG IM (08:42)
--- NOTE | 2024-04-11 10:29 | PC.RESP ---
FVC IS 2.55
[2024-04-11] MEDS: sodium chloride 0.9% 1,000 ML 75 ML IV (11:32)
[2024-04-11] MEDS: enoxaparin 40 mg/0.4 mL Syringe SUBCUT (14:19)
[2024-04-11] MEDS: acetaminophen 500 mg Tablet PO (17:32)
[2024-04-11] MEDS: IMMUNE GLOBULIN 40 GM/400 ML IV (17:35)
[2024-04-12] MEDS: sodium chloride 0.9% 1,000 ML 75 ML IV ×2 (03:10→16:28)
[2024-04-12 04:00] VITALS: BP 159/88; PULSE 97; RESP 16; TEMP 36.7; O2SAT 91
[2024-04-12 04:22] LABS: Basophils % 0.3 %; Eosinophils # 0.1 10^3/uL (0.0-0.8); Eosinophils % 4.3 %; Hematocrit 38.4 % (36-47); Lymphocytes # 1.2 10^3/uL (0.8-4.8); Lymphocytes % 38.6 %; Mean Corpuscular HGB Conc 31.3 g/dL (30-55); Mean Corpuscular Hemoglobin 30.5 pg (27-33); Mean Corpuscular Volume 97.7 fl (85-98); Mean Platelet Volume 9.6 fL (7.4-10.4); Monocytes # 0.3 10^3/uL (0.2-0.9); Monocytes % 10.6 %; Neutrophils % 46.2 %; Nucleated Red Blood Cells % 0 %; Platelet Count 169 10^3/cmm (157-399); Red Blood Count 3.93 10^6/uL (3.85-5.65); Red Cell Distribution Width 13.3 % (12.1-15.1); White Blood Count 3.03 10^3/uL (3.29-11.43)
[2024-04-12 04:33] LABS: Anion Gap 10.8 (5-19); Blood Urea Nitrogen 17 mg/dL (8-23); Calcium 7.8 mg/dL (8.5-10.5); Carbon Dioxide 24 mmol/L (22-29); Chloride 109 mmol/L (98-107); Creatinine Clr Calc Pharmacy 51.9029; Glucose 120 mg/dL (65-115); Magnesium 1.9 mg/dL (1.7-2.3); Osmolality Calculated 293 mOsm/kg (285-295); Potassium 3.8 mmol/L (3.5-5.1); Sodium 140 mmol/L (136-145)
[2024-04-12 08:00] VITALS: BP 117/78; PULSE 70; RESP 16; TEMP 36.8; O2SAT 95
[2024-04-12] MEDS: hydroCHLOROthiazide 25 mg Tablet 6.25 MG PO (09:37)
[2024-04-12] MEDS: anastrozole 1 mg Tablet PO (09:37)
[2024-04-12] MEDS: cyanocobalamin 1,000 mcg/mL SDV 1000 MCG IM (09:38)
[2024-04-12] MEDS: acetaminophen 500 mg Tablet PO (09:39)
[2024-04-12 09:40] VITALS: PULSE 88; RESP 18; O2SAT 92
[2024-04-12 12:00] VITALS: BP 108/72; PULSE 62; RESP 17; TEMP 36.9; O2SAT 94
--- NOTE | 2024-04-12 13:24 | PM.PN ---
Subjective Subjective: Patient able to walk with her walker. Says generalized weakness is improved. She feels better. Vitals/I&O/Wt Last Vital Signs Temp 98.3 F 04/12/24 08:00 Pulse 88 04/12/24 09:40 Resp 18 04/12/24 09:40 BP 117/78 04/12/24 08:00 Pulse Ox 92 04/12/24 09:40 O2 Del Method Room Air 04/12/24 09:40 04/11/24 04/12/24 04/12/24 22:59 06:59 14:59 Intake Total 640 / 2120 1000 / 3120 120 / 120 Balance 640 / 2120 1000 / 3120 120 / 120 Weight last 48 hrs Weight 93.168 kg Weight 93.213 kg Physical Exam Narrative: Awake and alert GCS 15 Pleasant cough No sign of respite distress Abdomen soft nontender Lungs clear to auscultation bilaterally S1, S2 Currently on room air Data 04/12/24 03:40 04/12/24 03:40 A&P Assessment and plan (1) 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 Patient most likely will go home after 5 days of IVIG Breast cancer continue anastrozole Check physical therapy consult. 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
[2024-04-12] MEDS: enoxaparin 40 mg/0.4 mL Syringe SUBCUT (15:20)
[2024-04-12 16:00] VITALS: PULSE 69; RESP 16; TEMP 36.3; O2SAT 99
[2024-04-12] MEDS: IMMUNE GLOBULIN 40 GM/400 ML IV (18:18)
[2024-04-12 20:00] VITALS: BP 153/94; PULSE 66; RESP 20; TEMP 37.1; O2SAT 95
[2024-04-13] VITALS: BP 149/89; PULSE 65; RESP 19; TEMP 36.8; O2SAT 96
[2024-04-13 04:00] VITALS: BP 120/67; PULSE 72; RESP 17; TEMP 36.8; O2SAT 96
[2024-04-13 05:59] LABS: Basophils % 0.6 %; Eosinophils # 0.2 10^3/uL (0.0-0.8); Eosinophils % 4.9 %; Hematocrit 37.5 % (36-47); Lymphocytes # 1.2 10^3/uL (0.8-4.8); Lymphocytes % 35.8 %; Mean Corpuscular HGB Conc 31.5 g/dL (30-55); Mean Corpuscular Hemoglobin 30.7 pg (27-33); Mean Corpuscular Volume 97.7 fl (85-98); Mean Platelet Volume 9.5 fL (7.4-10.4); Monocytes # 0.4 10^3/uL (0.2-0.9); Monocytes % 12.7 %; Neutrophils # 1.58 10^3/uL (1.8-7.7); Neutrophils % 45.7 %; Nucleated Red Blood Cells % 0 %; Platelet Count 148 10^3/cmm (157-399); Red Blood Count 3.84 10^6/uL (3.85-5.65); Red Cell Distribution Width 13.5 % (12.1-15.1); White Blood Count 3.46 10^3/uL (3.29-11.43)
[2024-04-13 06:43] LABS: Anion Gap 8.9 (5-19); Blood Urea Nitrogen 11 mg/dL (8-23); Calcium 7.5 mg/dL (8.5-10.5); Carbon Dioxide 24 mmol/L (22-29); Chloride 109 mmol/L (98-107); Glucose 105 mg/dL (65-115); Magnesium 1.8 mg/dL (1.7-2.3); Osmolality Calculated 286 mOsm/kg (285-295); Potassium 3.9 mmol/L (3.5-5.1); Sodium 138 mmol/L (136-145)
[2024-04-13 07:14] VITALS: BP 138/74; PULSE 71; RESP 17; TEMP 36.3; O2SAT 94
[2024-04-13 07:15] VITALS: PULSE 71; RESP 18; O2SAT 94
[2024-04-13] MEDS: anastrozole 1 mg Tablet PO (08:31)
[2024-04-13] MEDS: cyanocobalamin 1,000 mcg/mL SDV 1000 MCG IM (08:32)
[2024-04-13] MEDS: sodium chloride 0.9% 1,000 ML 75 ML IV (08:32)
[2024-04-13] MEDS: hydroCHLOROthiazide 25 mg Tablet 6.25 MG PO (08:32)
--- NOTE | 2024-04-13 10:02 | PC.SOCIAL ---
IMM Update pg 2 of IMM updated and reviewed w/ patient. Copy provided and copy dated, initialed and placed in chart.
[2024-04-13 11:20] VITALS: BP 126/79; PULSE 61; RESP 18; TEMP 36.6; O2SAT 95
--- NOTE | 2024-04-13 11:25 | P.DS_ITS ---
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, she was admitted to the hospital as a direct admit for initiation of IVIG we gave her IVIG for 5 days according to her weight monitor her forced vital capacity which stayed around 2.6-2.7, she was initially monitored in ICU then transferred to [facility], hemodynamically remained stable, she was also low on vitamin B12 which was supplemented via intramuscular injection, at the time of discharge patient is stating that her low extremity weakness has slightly improved, no shortness of breath, she will follow-up with neurology outpatient, she has positive GD 1 IgM antibodies, positive neuro conduction study of sensorimotor axonal neuropathy which could be related to B12 deficiency as well. Patient refused LP. Patient will be discharged home with stable hemodynamics She has been experiencing chronic diarrhea, sent stool studies which are pending no recent diarrhea in the hospital Positive lactoferrin no blood in stool If her diarrhea does not improve she may need colonoscopy with biopsy no acute or Physical Exam Narrative: Awake and alert Nonfocal neuroexam GCS 15 Reflexes equivocal No active respiratory distress On room air Hemodynamically stable Discharge Data Studies Completed and Pending Completed Studies During Hospitalization Category Date Time Status CT head wo con* [id number] Routine Cat Scan 04/09/24 14:38 Completed Pending at discharge Category Date Time Status CSF Analysis + Cell Count Routine Lab 04/09/24 15:23 Uncollected CSF Culture & Gram Stain Routine Lab 04/09/24 15:23 Uncollected Glucose CSF Routine Lab 04/09/24 15:23 Uncollected Helicobacter Pylori AG Stool Routine Lab 04/10/24 14:14 Received Stool Culture - Enteric [Salmonella / Shigella / Campy] Lab 04/10/24 14:14 Received Routine Total Protein CSF Routine Lab 04/09/24 15:23 Uncollected Radiology Impressions Head CT 04/09/24 14:38 IMPRESSION: No acute intracranial abnormality. Laboratory Results WBC 3.46 10^3/uL (3.29-11.43) 04/13/24 05:28 RBC 3.84 10^6/uL (3.85-5.65) L 04/13/24 05:28 Hgb 11.80 g/dL (11.27-16.99) 04/13/24 05:28 Hct 37.5 % (36-47) 04/13/24 05:28 MCV 97.7 fl (85-98) 04/13/24 05:28 MCH 30.7 pg (27-33) 04/13/24 05:28 MCHC 31.5 g/dL (30-55) 04/13/24 05:28 RDW 13.5 % (12.1-15.1) 04/13/24 05:28 Plt Count 148 10^3/cmm (157-399) L 04/13/24 05:28 MPV 9.5 fL (7.4-10.4) 04/13/24 05:28 Neut % (Auto) 45.7 % 04/13/24 05:28 Lymph % (Auto) 35.8 % 04/13/24 05:28 [place] % (Auto) 12.7 % 04/13/24 05:28 Eos % (Auto) 4.9 % 04/13/24 05:28 Baso % (Auto) 0.6 % 04/13/24 05:28 Neut # (Auto) 1.58 10^3/uL (1.8-7.7) L 04/13/24 05:28 Lymph # (Auto) 1.2 10^3/uL (0.8-4.8) 04/13/24 05:28 [place] # (Auto) 0.4 10^3/uL (0.2-0.9) 04/13/24 05:28 Eos # (Auto) 0.2 10^3/uL (0.0-0.8) 04/13/24 05:28 Baso # (Auto) 0.0 10^3/uL (0.0-0.1) 04/13/24 05:28 Nucleated RBC % (auto) 0 % 04/13/24 05:28 Nucleated RBCs # 0.0 /100WBC 04/13/24 05:28 Sodium 138 mmol/L (136-145) 04/13/24 05:28 Potassium 3.9 mmol/L (3.5-5.1) 04/13/24 05:28 Chloride 109 mmol/L (98-107) H 04/13/24 05:28 Carbon Dioxide 24 mmol/L (22-29) 04/13/24 05:28 Anion Gap 8.9 (5-19) 04/13/24 05:28 BUN 11 mg/dL (8-23) 04/13/24 05:28 Creatinine 0.9 mg/dL (0.5-0.9) 04/13/24 05:28 GFR Calculation Not Reportable 04/13/24 05:28 Glucose 105 mg/dL (65-115) 04/13/24 05:28 POC Glucose 131 mg/dL (70-110) H 04/11/24 03:01 Estimat Average Glucose 120 04/09/24 15:00 Hemoglobin A1c 5.8 % (4.0-6.0) 04/09/24 15:00 Calculated Osmolality 286 mOsm/kg (285-295) 04/13/24 05:28 Calcium 7.5 mg/dL (8.5-10.5) L 04/13/24 05:28 Magnesium 1.8 mg/dL (1.7-2.3) 04/13/24 05:28 C-Reactive Protein 5.2 mg/L (0.0-4.9) H 04/10/24 03:44 Vitamin B12 172 pg/mL (232-1245) L 04/09/24 15:00 TSH 2.12 uIU/mL (0.27-4.20) 04/09/24 15:00 Vitals Last Vital Signs Temp 97.8 F 04/13/24 11:20 Pulse 61 04/13/24 11:20 Resp 18 04/13/24 11:20 BP 126/79 04/13/24 11:20 Pulse Ox 95 04/13/24 11:20 O2 Del Method Room Air 04/13/24 11:20 Discharge Plan Discharge Patient Disposition: Home Condition: Stable Prescriptions: New mecobalamin (vitamin B12) [B12 Active] 1,000 mcg tablet,chewable 1,000 mcg PO DAILY Qty: 180 3RF folic acid 1 mg tablet 1,000 mcg PO DAILY Qty: 90 0RF Continued bisoprolol-hydrochlorothiazide [Ziac] 5-6.25 mg tablet 1 tab PO DAILY Zyrtec 10 mg capsule 20 mg PO DAILY diphenhydramine HCl [Benadryl Allergy] 25 mg tablet 50 mg PO DAILY Rx Instructions: 2 TABS AT NIGHT biotin 1 mg capsule 1 mg PO DAILY cholecalciferol (vitamin D3) 10 mcg (400 unit) capsule 10 mcg PO DAILY atorvastatin 10 mg tablet 5 mg PO Q7D anastrozole 1 mg tablet 1 mg PO DAILY Qty: 90 1RF Discharge Orders: Discharge Order (Routine); Ordered 04/13/24 Ordered By: Pola Ladd Referrals: Jayden Clarke MD [Primary Care Provider] - 04/21/24 9:15 am Patient Instructions: Opioid Safety Discharge Attestations Time Spent in Discharge Care*: greater than 30 min Quality Metrics Clinical Quality Measures [ No reported AMI, CVA or VTE this stay] Coding Level of Care Code Acute Code for [facility] Diagnoses Axonal polyneuropathy G62.9 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
[2024-04-13] MEDS: IMMUNE GLOBULIN 40 GM/400 ML IV (12:11)
[2024-04-13 14:25] VITALS: BP 126/79; PULSE 61; RESP 18; TEMP 36.6; O2SAT 95
== END 2024-04-13 14:26 | disposition home or self-care (01) | DRG 96 ==
LOC: ICU 13:58 → MEDSURG 04-10 13:33
PROVIDERS: Internal Medicine; Admitting Provider Internal Medicine; PCP Family Medicine; Visit Provider Internal Medicine
DX: G61.0 Guillain-Barre syndrome (principal); E53.8 Deficiency of other specified B group vitamins; K52.9 Noninfective gastroenteritis and colitis, unspecified; E78.5 Hyperlipidemia, unspecified; E11.9 Type 2 diabetes mellitus without complications; I10 Essential (primary) hypertension
CPT/HCPCS: 36415; 36416; 70450; 80048; 82274; 82607; 82962; 83036; 83630; 83735; 84443; 85025; 86140; 87045; 87338; 87427; 87449; 94664; 95913; 96372; 97110; 97116; 97161; 97165; J1459; J1650; J2405; J3420; J7030; J8999

== ENCOUNTER 2024-05-13 15:00 | Oncology outpatient (recurring) (ONCR) | payer MEDICARE, OTHER, SELFPAY ==
--- NOTE | 2024-05-13 15:30 | MM_ITS ---
WS: [id number] BILATERAL 3D TOMOSYNTHESIS DIGITAL DIAGNOSTIC MAMMOGRAPHY WITH CAD CLINICAL INFORMATION: survalance HISTORY: LEFT lumpectomy. COMPARISON: 2022 TECHNIQUE: Bilateral CC, MLO, and ML views. FINDINGS: Scattered fibroglandular densities bilaterally. Postoperative changes LEFT lumpectomy with surgical c lips. This is unchanged in appearance compared to previous. A few incidental punctate calcifications. No suspicious focal mass, asymmetry, calcifications, or architectural distortion. No evidence of heather gnancy. MM/[place] [id number] IMPRESSION: DENSITY: There are scattered areas of fibroglandular density. BI-RADS: 2 - Benign. FOLLOW UP: 1 Year Follow-up Recommend return to annual diagnostic mammography.
== END 2024-06-08 23:59 | disposition home or self-care (01) ==
PROVIDERS: PCP Family Medicine; Visit Provider Internal Medicine
DX: C50.812 Malignant neoplasm of overlapping sites of left female breast (principal); Z79.811 Long term (current) use of aromatase inhibitors; R92.323 Mammographic fibroglandular density, bilateral breasts
CPT/HCPCS: 77062; G0279

== ENCOUNTER 2024-05-25 15:13 | Outpatient (RCR) | payer MEDICARE, OTHER, SELFPAY | END 2024-06-08 23:59 | disposition home or self-care (01) | LOC: SPT 15:13 | PROVIDERS: PCP Family Medicine; Visit Provider Family Medicine | DX: M62.81 Muscle weakness (generalized) (principal) | CPT/HCPCS: 97110; 97161 ==

== ENCOUNTER 2024-06-09 06:00 | Outpatient (RCR) | payer MEDICARE, OTHER, SELFPAY | END 2024-06-30 23:59 | disposition home or self-care (01) | LOC: SPT 06:00 | PROVIDERS: PCP Family Medicine; Visit Provider Family Medicine | DX: G61.0 Guillain-Barre syndrome (principal) | CPT/HCPCS: 97110 ==

== ENCOUNTER 2024-08-20 11:56 | Oncology outpatient (recurring) (ONCR) | payer MEDICARE, OTHER, SELFPAY ==
[2024-08-20 12:34] LABS: Basophils % 0.5 %; Eosinophils # 0.2 10^3/uL (0.0-0.8); Eosinophils % 2.7 %; Hematocrit 42.9 % (36-47); Mean Corpuscular HGB Conc 32.6 g/dL (30-55); Mean Corpuscular Hemoglobin 30.4 pg (27-33); Mean Corpuscular Volume 93.1 fl (85-98); Mean Platelet Volume 9.2 fL (7.4-10.4); Monocytes # 0.6 10^3/uL (0.2-0.9); Monocytes % 8.8 %; Neutrophils # 3.81 10^3/uL (1.8-7.7); Neutrophils % 57.8 %; Nucleated Red Blood Cells % 0 %; Platelet Count 228 10^3/cmm (157-399); Red Blood Count 4.61 10^6/uL (3.85-5.65); Red Cell Distribution Width 13.3 % (12.1-15.1); White Blood Count 6.59 10^3/uL (3.29-11.43)
[2024-08-20 12:56] LABS: Alanine Aminotransferase 8 U/L (0-33); Albumin Level 3.5 g/dL (3.5-5.2); Alkaline Phosphatase 89 U/L (35-105); Anion Gap 14.4 (5-19); Aspartate Amino Transferase 15 U/L (0-32); Blood Urea Nitrogen 32 mg/dL (8-23); Carbon Dioxide 26 mmol/L (22-29); Chloride 106 mmol/L (98-107); Glucose 102 mg/dL (65-115); Osmolality Calculated 301 mOsm/kg (285-295); Potassium 4.4 mmol/L (3.5-5.1); Sodium 142 mmol/L (136-145); Total Bilirubin 0.3 mg/dL (0.15-1.2); Total Protein 6.5 g/dL (6.6-8.7)
[2024-08-20] MEDS: denosumab 60 mg SDV SUBCUT (14:36)
== END 2024-09-08 23:59 | disposition home or self-care (01) ==
PROVIDERS: PCP Family Medicine; Visit Provider Internal Medicine
DX: C50.812 Malignant neoplasm of overlapping sites of left female breast (principal); Z79.811 Long term (current) use of aromatase inhibitors; Z79.899 Other long term (current) drug therapy; M85.80 Other specified disorders of bone density and structure, unspecified site
CPT/HCPCS: 36415; 80053; 85025; 96372; 99213; J0897

== ENCOUNTER 2024-09-03 15:06 | Emergency (ER) | payer MEDICARE, OTHER, SELFPAY ==
[2024-09-03 15:10] VITALS: BP 153/75; PULSE 70; RESP 18; TEMP 36.5; O2SAT 98; BMI 37.8
[2024-09-03 15:25] VITALS: BP 165/85; PULSE 69; RESP 18; O2SAT 97
--- NOTE | 2024-09-03 15:55 | ED_ITS ---
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 states that she has had some she states just not feeling right in her lower extremities over the last week states she feels like there is a vibration she denies any severe weakness she is able ambulate here without any problems she denies any decrease sensation denies any pain anywhere Associated symptoms: Deny chest pain, headache(s), nausea or vomiting Related Data Home Medications Medication Instructions Recorded Confirmed bisoprolol 5 1 tab PO DAILY 09/06/20 09/03/24 mg-hydrochlorothiazide 6.25 mg tablet (Ziac) cetirizine 10 mg capsule (Zyrtec) 20 mg PO DAILY 03/10/21 09/03/24 diphenhydramine HCl 25 mg tablet 50 mg PO DAILY 03/10/21 09/03/24 (Benadryl Allergy) biotin 1 mg capsule 1 mg PO DAILY 09/11/22 09/03/24 cholecalciferol (vitamin D3) 10 10 mcg PO DAILY 09/11/22 09/03/24 mcg (400 unit) capsule atorvastatin 10 mg tablet 5 mg PO Q7D 02/12/23 09/03/24 Previous Rx's Medication Instructions Recorded folic acid 1 mg tablet 1,000 mcg PO DAILY #90 tabs 04/13/24 mecobalamin (vitamin B12) 1,000 1,000 mcg PO DAILY #180 tabs 04/13/24 mcg chewable tablet (B12 Active) anastrozole 1 mg tablet 1 mg PO DAILY #90 tabs 08/18/24 Allergies Allergy/AdvReac Type Severity Reaction Status Date / Time latex Allergy Unknown Unknown Verified 09/03/24 15:19 nitrile Allergy Unknown Unknown Verified 09/03/24 15:19 Review of Systems 2 Const: Denies: fever(s), chills, body aches or change in appetite ENMT: Denies: throat pain or dental pain Card: Denies: chest pain Resp: Denies: dyspnea GI: Denies: abdominal pain, nausea, vomiting or diarrhea Musc: Denies: neck pain or back pain Skin/Breast: Denies: rash Neuro: Reports: weakness in extremities; Denies: headache(s) PFSH ED 2 PFSH: Medical History Angioedema Axonal polyneuropathy B12 deficiency Breast cancer Diabetes 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 Did well. Surgical History Status post left breast lumpectomy (03/16/21) With sentinel lymph node biopsy History of back surgery Hx of cholecystectomy Hx of hysterectomy History of extraction of renal calculus ESWL WITH STENT PLACEMENT AND STENT REMOVAL Family History Mother , AT AGE 98 Congestive heart failure (CHF) FATHER AT AGE 35 TUBERCULOSIS Social History Smoking and tobacco/nicotine status: never used tobacco/nicotine Alcohol intake: never Adopted: No Caregiver/support person: No Lives independently: Yes Marital status: / Current occupational status: retired Physical Exam 2 Const: COMMON NORMALS: no acute distress, patient oriented x3 and healthy appearing HENMT: COMMON NORMALS: normocephalic and atraumatic HEAD & SCALP: n ormocephalic and atraumatic Eye: COMMON NORMALS: conjunctivae normal CONJUNCTIVA: Yes conjunctivae normal Neck/C-Spine: COMMON NORMALS: full ROM and supple Chest: COMMONS NORMALS: normal inspection of the chest Resp: COMMON NORMALS: normal respiratory effort Cardio: COMMON NORMALS: regular rate, regular rhythm and No murmurs present (Cardio) RATE: regular rate RHYTHM: regular rhythm GI: COMMON NORMALS: Normal to inspection, nondistended, normoactive bowel sounds present, Soft to palpation, non-tender and no masses PALPATION: Yes Soft to palpation Extremity: COMMON NORMALS: normal to inspection and full ROM Neuro: COMMON NORMALS: patient oriented x3, moves all extremities and no focal motor deficits MOTOR EXAM: 5/5 motor strength present throughout Psych: COMMON NORMALS: mental status grossly normal, Normal thought process present and cooperative THOUGHT PROCESS: Normal thought process present Skin: COMMON NORMALS: no rashes or lesions noted and no wounds GENERAL SKIN EXAM: no rashes or lesions noted Course 2 Vital Signs: Vital signs: Vital Signs Temperature 97.7 F 09/03/24 15:10 Pulse Rate 69 09/03/24 18:02 Respiratory Rate 18 09/03/24 15:25 Blood Pressure 138/79 09/03/24 18:02 Pulse Oximetry 97 09/03/24 18:02 Oxygen Delivery Me thod Room Air 09/03/24 15:25 MDM - Neuro Symptoms/Deficit Medical Decision Making Patient presents here with some generalized weakness she has been well-appearing here has no obvious weakness here she is able to ambulate she is stable for discharge follow-up with PCP and neurologist return if worsening. Medical Records I reviewed the patient's medical records. Lab Data I reviewed the patient's lab results. 09/03/24 16:05 09/03/24 16:[address] 09/03/24 16:09 IMPRESSION: No acute intracranial process. Senescent changes. If there is continued clinical concern for an acute ischemic event then follow up with a brain MRI examination. Laboratory Results WBC 6.05 10^3/uL (3.29-11.43) 09/03/24 16:05 RBC 4.34 10^6/uL (3.85-5.65) 09/03/24 16:05 Hgb 12.90 g/dL (11.27-16.99) 09/03/24 16:05 Hct 41.5 % (36-47) 09/03/24 16:05 MCV 95.6 fl (85-98) 09/03/24 16:05 MCH 29.7 pg (27-33) 09/03/24 16:05 MCHC 31.1 g/dL (30-55) 09/03/24 16:05 RDW 13.5 % (12.1-15.1) 09/03/24 16:05 Plt Count 207 10^3/cmm (157-399) 09/03/24 16:05 MPV 9.4 fL (7.4-10.4) 09/03/24 16:05 Neut % (Auto) 56.4 % 09/03/24 16:05 Lymph % (Auto) 32.7 % 09/03/24 16:05 [place] % (Auto) 7.9 % 09/03/24 16:05 Eos % (Auto) 2.3 % 09/03/24 16:05 Baso % (Auto) 0.5 % 09/03/24 16:05 Neut # (Auto) 3.41 10^3/uL (1.8-7.7) 09/03/24 16:05 Lymph # (Auto) 2.0 10^3/uL (0.8-4.8) 09/03/24 16:05 [place] # (Auto) 0.5 10^3/uL (0.2-0.9) 09/03/24 16:05 Eos # (Auto) 0.1 10^3/uL (0.0-0.8) 09/03/24 16:05 Baso # (Auto) 0.0 10^3/uL (0.0-0.1) 09/03/24 16:05 Nucleated RBC % (auto) 0 % 09/03/24 16:05 Nucleated RBCs # 0.0 /100WBC 09/03/24 16:05 Sodium 142 mmol/L (136-145) 09/03/24 16:05 Potassium 3.5 mmol/L (3.5-5.1) 09/03/24 16:05 Chloride 108 mmol/L (98-107) H 09/03/24 16:05 Carbon Dioxide 24 mmol/L (22-29) 09/03/24 16:05 Anion Gap 13.5 (5-19) 09/03/24 16:05 BUN 24 mg/dL (8-23) H 09/03/24 16:05 Creatinine 1.1 mg/dL (0.5-0.9) H 09/03/24 16:05 GFR Calculation Not Reportable 09/03/24 16:05 Glucose 114 mg/dL (65-115) 09/03/24 16:05 Calculated Osmolality 299 mOsm/kg (285-295) H 09/03/24 16:05 Calcium 8.4 mg/dL (8.5-10.5) L 09/03/24 16:05 Total Bilirubin 0.2 mg/dL (0.15-1.2) 09/03/24 16:05 AST 19 U/L (0-32) 09/03/24 16:05 ALT 9 U/L (0-33) 09/03/24 16:05 Alkaline Phosphatase 77 U/L (35-105) 09/03/24 16:05 Total Protein 6.4 g/dL (6.6-8.7) L 09/03/24 16:05 Albumin 3.4 g/dL (3.5-5.2) L 09/03/24 16:05 Globulin 3.0 g/dL (1.3-4.6) 09/03/24 16:05 Vitamin B12 417 pg/mL (232-1245) 09/03/24 16:05 No radiology studies performed this visit Discharge Plan Discharge Patient Disposition: Home Clinical Impression: Generalized weakness Condition: Stable Prescriptions: No Action bisoprolol-hydrochlorothiazide [Ziac] 5-6.25 mg tablet 1 tab PO DAILY Zyrtec 10 mg capsule 20 mg PO DAILY diphenhydramine HCl [Benadryl Allergy] 25 mg tablet 50 mg PO DAILY Rx Instructions: 2 TABS AT NIGHT biotin 1 mg capsule 1 mg PO DAILY cholecalciferol (vitamin D3) 10 mcg (400 unit) capsule 10 mcg PO DAILY atorvastatin 10 mg tablet 5 mg PO Q7D anastrozole 1 mg tablet 1 mg PO DAILY Qty: 90 0RF mecobalamin (vitamin B12) [B12 Active] 1,000 mcg tablet,chewable 1,000 mcg PO DAILY Qty: 180 3RF folic acid 1 mg tablet 1,000 mcg PO DAILY Qty: 90 0RF Discharge Orders: Discharge ED (Routine); Ordered 09/03/24 Ordered By: Gerard Rodriguez Referrals: Silvio Lopez MD [Physician] - Jayden Clarke MD [Primary Care Provider] - Discharge Diet: Advance as tolerated Discharge Activity: Resume usual activity Patient Instructions: Weakness (Generalized) Coding Level of Care Code ED Mental Health Specialist for Anabela Zacarias
--- NOTE | 2024-09-03 16:09 | CTR_ITS ---
PROCEDURE INFORMATION: Exam: CT Head Without Contrast Exam date and time: 09/03/2024 4:45 PM Age: 78 years old Clinical indication: Weakness, extremity; Bilateral TECHNIQUE: Imaging protocol: Computed tomography of the head without contrast. Radiation optimization: All CT scans at this facility use at least one of these dose optimization techniques: automated exposure control; mA and/or kV adjustment per patient size (includes targeted exams where dose is matched to clinical indication); or iterative reconstruction. COMPARISON: CT head wo con* [id number] 04/09/2024 4:36 PM RADIATION DOSE METRICS: Total DLP (mGy-cm): 1219.08 FINDINGS: Brain: Age-related brain parenchymal atrophy. Areas of hypoattenuation in the periventricular and subcortical deep white matter likely on the basis of chronic microvascular ischemic changes. No acute intra cranial hemorrhage. No mass effect or midline shift. No definitive CT evidence of acute territorial infarction. Cerebral ventricles: No ventriculomegaly. Paranasal sinuses: Visualized sinuses are unremarkable. No fluid levels. Mastoid air cells: Visualized mastoid air cells are well aerated. Bones: Intact calvarium. Hyperostosis frontalis interna. Soft tissues: Unremarkable. CT/CT head wo con* [id number] IMPRESSION: No acute intracranial process. Senescent changes. If there is continued clinical concern for an acute ischemic event then follow up with a brain MRI examination.
[2024-09-03 16:29] LABS: Basophils % 0.5 %; Eosinophils # 0.1 10^3/uL (0.0-0.8); Eosinophils % 2.3 %; Hematocrit 41.5 % (36-47); Lymphocytes % 32.7 %; Mean Corpuscular HGB Conc 31.1 g/dL (30-55); Mean Corpuscular Hemoglobin 29.7 pg (27-33); Mean Corpuscular Volume 95.6 fl (85-98); Mean Platelet Volume 9.4 fL (7.4-10.4); Monocytes # 0.5 10^3/uL (0.2-0.9); Monocytes % 7.9 %; Neutrophils # 3.41 10^3/uL (1.8-7.7); Neutrophils % 56.4 %; Nucleated Red Blood Cells % 0 %; Platelet Count 207 10^3/cmm (157-399); Red Blood Count 4.34 10^6/uL (3.85-5.65); Red Cell Distribution Width 13.5 % (12.1-15.1); White Blood Count 6.05 10^3/uL (3.29-11.43)
[2024-09-03 16:52] LABS: Alanine Aminotransferase 9 U/L (0-33); Albumin Level 3.4 g/dL (3.5-5.2); Alkaline Phosphatase 77 U/L (35-105); Anion Gap 13.5 (5-19); Aspartate Amino Transferase 19 U/L (0-32); Blood Urea Nitrogen 24 mg/dL (8-23); Calcium 8.4 mg/dL (8.5-10.5); Carbon Dioxide 24 mmol/L (22-29); Chloride 108 mmol/L (98-107); Creatinine Clr Calc Pharmacy 41.8349; Glucose 114 mg/dL (65-115); Osmolality Calculated 299 mOsm/kg (285-295); Potassium 3.5 mmol/L (3.5-5.1); Sodium 142 mmol/L (136-145); Total Bilirubin 0.2 mg/dL (0.15-1.2); Total Protein 6.4 g/dL (6.6-8.7)
[2024-09-03 17:05] LABS: Vitamin B12 417 pg/mL (232-1245)
[2024-09-03 18:02] VITALS: BP 138/79; PULSE 69; O2SAT 97
== END 2024-09-03 18:05 | disposition home or self-care (01) ==
PROVIDERS: Emergency Provider Emergency Medicine; PCP Family Medicine
DX: R53.1 Weakness (principal); E11.9 Type 2 diabetes mellitus without complications; I10 Essential (primary) hypertension; E78.5 Hyperlipidemia, unspecified
CPT/HCPCS: 36415; 70450; 80053; 82607; 85025; 99284

== ENCOUNTER 2024-09-10 13:45 | Oncology outpatient (recurring) (ONCR) | payer MEDICARE, OTHER, SELFPAY ==
[2024-09-10 14:26] LABS: Basophils % 0.5 %; Eosinophils # 0.1 10^3/uL (0.0-0.8); Eosinophils % 2.2 %; Lymphocytes # 1.9 10^3/uL (0.8-4.8); Lymphocytes % 32.4 %; Mean Corpuscular HGB Conc 31.4 g/dL (30-55); Mean Corpuscular Hemoglobin 30.3 pg (27-33); Mean Corpuscular Volume 96.3 fl (85-98); Mean Platelet Volume 9.2 fL (7.4-10.4); Monocytes # 0.5 10^3/uL (0.2-0.9); Monocytes % 8.3 %; Neutrophils # 3.38 10^3/uL (1.8-7.7); Neutrophils % 56.4 %; Nucleated Red Blood Cells % 0 %; Platelet Count 224 10^3/cmm (157-399); Red Blood Count 4.36 10^6/uL (3.85-5.65); Red Cell Distribution Width 13.7 % (12.1-15.1); White Blood Count 5.99 10^3/uL (3.29-11.43)
[2024-09-10 14:39] LABS: Alanine Aminotransferase 14 U/L (0-33); Albumin Level 3.6 g/dL (3.5-5.2); Alkaline Phosphatase 78 U/L (35-105); Anion Gap 12.1 (5-19); Aspartate Amino Transferase 21 U/L (0-32); Blood Urea Nitrogen 23 mg/dL (8-23); Calcium 8.6 mg/dL (8.5-10.5); Carbon Dioxide 27 mmol/L (22-29); Chloride 107 mmol/L (98-107); Globulin 2.7 g/dL (1.3-4.6); Glucose 111 mg/dL (65-115); Osmolality Calculated 298 mOsm/kg (285-295); Potassium 4.1 mmol/L (3.5-5.1); Sodium 142 mmol/L (136-145); Total Bilirubin 0.3 mg/dL (0.15-1.2); Total Protein 6.3 g/dL (6.6-8.7)
== END 2024-10-09 23:59 | disposition home or self-care (01) ==
PROVIDERS: Internal Medicine; Nurse Practitioner Family; PCP Family Medicine; Visit Provider Internal Medicine
DX: C50.812 Malignant neoplasm of overlapping sites of left female breast (principal)
CPT/HCPCS: 36415; 80053; 85025

== ENCOUNTER 2024-09-28 13:29 | Outpatient (RCR) | payer MEDICARE, OTHER, SELFPAY | END 2024-10-09 23:59 | disposition home or self-care (01) | LOC: SPT 13:29 | PROVIDERS: Visit Provider Family Medicine | DX: H81.12 Benign paroxysmal vertigo, left ear (principal) | CPT/HCPCS: 95992; 97161 ==

== ENCOUNTER 2024-10-06 08:16 | Emergency (ER) | payer MEDICARE, OTHER, SELFPAY ==
[2024-10-06 08:33] VITALS: BP 100/60; PULSE 74; RESP 16; TEMP 36.7; O2SAT 95; BMI 35.9
--- NOTE | 2024-10-06 08:56 | XR_ITS ---
WS: [id number] Exam: XR chest 1V portable [id number] Date/Time of Exam: 10/06/2024 9:00 AM Reason For Exam: dyspnea/cough Comparison 09/11/2021. The lungs are fully expanded and clear. Chronic eventration of the RIGHT diaphragm. Normal mediastinu m and cardiac silhouette. Bony structures are intact. No joint effusion. Surgical clips in the LEFT b reast. XR/XR chest 1V portable [id number] IMPRESSION: 1. No acute cardiopulmonary process.
--- NOTE | 2024-10-06 08:57 | ECG_ITS ---
[facility] Date: 2024-10-06 Pat Name: Isatu Joaquin Department: Room: Gender: Female Skill Training Program Coordinator: : 1945 Requested By: Shiv Dickerson Order Number: [id number] Cruz MD: Jacoby Murillo M.D. Measurements Intervals [place] Rate: 76 P: 49 [place]: 187 QRS: -40 QRSD: 97 T: 12 QT: 398 QTc: 448 Interpretive Statements SINUS RHYTHM LEFT AXIS DEVIATION [QRS AXIS < -30] PATTERN CONSISTENT WITH PULMONARY DISEASE MINIMAL ST DEPRESSION [0.025+ mV ST DEPRESSION] Compared to ECG 08/10/2018 19:26:28 ST (T wave) deviation now present Myocardial infarct finding no longer present Electronically Signed On 10-08-2024 11:24:19 PRODUCT DEVELOPMENT WORKER by Jacoby Murillo M.D. [id number]
[2024-10-06 09:06] VITALS: BP 129/99; PULSE 77; O2SAT 98
[2024-10-06 09:10] LABS: Basophils % 0.2 %; Eosinophils # 0.1 10^3/uL (0.0-0.8); Hematocrit 49.9 % (36-47); Lymphocytes % 23.6 %; Mean Corpuscular HGB Conc 32.9 g/dL (30-55); Mean Corpuscular Hemoglobin 30.6 pg (27-33); Mean Corpuscular Volume 93.1 fl (85-98); Mean Platelet Volume 9.1 fL (7.4-10.4); Monocytes # 0.4 10^3/uL (0.2-0.9); Monocytes % 9.1 %; Neutrophils # 2.85 10^3/uL (1.8-7.7); Neutrophils % 64.9 %; Nucleated Red Blood Cells % 0 %; Platelet Count 281 10^3/cmm (157-399); Red Blood Count 5.36 10^6/uL (3.85-5.65); Red Cell Distribution Width 13.5 % (12.1-15.1)
[2024-10-06 09:35] LABS: Alanine Aminotransferase 13 U/L (0-33); Alkaline Phosphatase 83 U/L (35-105); Aspartate Amino Transferase 22 U/L (0-32); Blood Urea Nitrogen 35 mg/dL (8-23); Calcium 8.1 mg/dL (8.5-10.5); Carbon Dioxide 17 mmol/L (22-29); Chloride 105 mmol/L (98-107); Globulin 3.5 g/dL (1.3-4.6); Glucose 205 mg/dL (65-115); Osmolality Calculated 302 mOsm/kg (285-295); Sodium 139 mmol/L (136-145); Total Bilirubin 0.2 mg/dL (0.15-1.2); Total Protein 7.5 g/dL (6.6-8.7)
--- NOTE | 2024-10-06 09:35 | W.ED.WEAKNES ---
HPI - Weakness General: Chief complaint: Weakness Stated complaint: flu (extreme weight loss) Time Seen by Provider: 10/06/24 08:53 History of Present Illness: 78-year-old female presents to the emergency room with complaints of nausea and vomiting. Her last episodes of vomiting several days ago still having loose stools denies any medic easy melena hematemesis or coffee-ground emesis no dysuria urgency or frequency. No elevated fevers. She has a history of Guillain-Ogden?. Associated symptoms: Reports chills, fever(s), nausea and vomiting; Denies chest pain, melena or dysuria Review of Systems Const: Reports: fever(s), chills, change in appetite, change in weight and fatigue Card: Denies: chest pain Resp: Reports: non-productive cough; Denies: dyspnea GI: Reports: nausea, vomiting and diarrhea; Denies: abdominal pain, hematemesis, coffee ground emesis, hematochezia or melena : Denies: dysuria, urinary frequency or urinary urgency Musc: Denies: neck pain or back pain Skin/Breast: Denies: rash PFSH ED PFSH: Medical History Angioedema Axonal polyneuropathy B12 deficiency Breast cancer Diabetes 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 Did well. Surgical History Status post left breast lumpectomy (03/16/21) With sentinel lymph node biopsy History of back surgery Hx of cholecystectomy Hx of hysterectomy History of extraction of renal calculus ESWL WITH STENT PLACEMENT AND STENT REMOVAL Family History Mother , AT AGE 98 Congestive heart failure (CHF) FATHER AT AGE 35 TUBERCULOSIS Social History Smoking and tobacco/nicotine status: never used tobacco/nicotine Alcohol intake: never Adopted: No Caregiver/support person: No Lives independently: Yes Marital status: / Current occupational status: retired Physical Exam Const: COMMON NORMALS: no acute distress GENERAL APPEARANCE: cooperative and comfortable ORIENTATION/CONSCIOUSNESS: Yes awake, Yes oriented to person, Yes oriented to place and Yes oriented to time HENMT: COMMON NORMALS: normocephalic, atraumatic and hearing grossly normal bilaterally HEAD & SCALP: normocephalic and atraumatic Resp: COMMON NORMALS: normal respiratory effort, No retractions, No use of accessory muscles and clear to auscultation bilaterally AUSCULTATION: clear to auscultation bilaterally Cardio: COMMON NORMALS: regular rate, regular rhythm and No murmurs present (Cardio) RATE: regular rate RHYTHM: regular rhythm GI: COMMON NORMALS: Soft to palpation and No hepatosplenomegaly present AUSCULTATION: Yes normoactive bowel sounds PALPATION: Yes Soft to palpation, No Tenderness to palpation present (GI), No Guarding due to palpation present (GI) and Yes No hepatosplenomegaly present Extremity: COMMON NORMALS: normal to inspection, capillary refill normal, no clubbing, cyanosis or edema, no calf tenderness and no pedal edema Neuro: SENSORIUM/ORIENTATION: Yes oriented to person, Yes oriented to place and Yes oriented to time Skin: COMMON NORMALS: no rashes or lesions noted GENERAL SKIN EXAM: no rashes or lesions noted Course Vital Signs: Vital signs: Vital Signs Temperature 98.1 F 10/06/24 08:33 Pulse Rate 61 10/06/24 13:06 Respiratory Rate 19 H 10/06/24 10:00 Blood Pressure 118/59 10/06/24 13:06 Pulse Oximetry 94 10/06/24 13:06 Oxygen Delivery Me thod Nasal Cannula 10/06/24 10:00 Oxygen Flow Rate 2 10/06/24 10:00 MDM - Weakness Medical Decision Making Chest x-ray normal CT does not show any acute changes. Patient has mild worsening of her creatinine. Will hold her hydrochlorothiazide put her on plain bisoprolol. She should follow-up with her doctor within a week to recheck her creatinine. Some discharge patient was on room air notes have her on 2 L. She is not having any respiratory distress. Medical Records I reviewed the patient's medical records. Lab Data I reviewed the patient's lab results. 10/06/24 09:02 10/06/24 09:02 Radiology Impressions Chest X-Ray 10/06/24 08:56 IMPRESSION: 1. No acute cardiopulmonary process. Abdomen/Pelvis CT 10/06/24 11:06 IMPRESSION: 1. No acute findings in the abdomen or pelvis. 2. Prior cholecystectomy and hysterectomy. 3. Sigmoid diverticulosis. No evidence of acute diverticulitis. 4. No obstructing renal or ureteral calculi. 5. Normal appendix in the RIGHT lower quadrant. Laboratory Results WBC 4.40 10^3/uL (3.29-11.43) 10/06/24 09:02 RBC 5.36 10^6/uL (3.85-5.65) 10/06/24 09:02 Hgb 16.40 g/dL (11.27-16.99) 10/06/24 09:02 Hct 49.9 % (36-47) H 10/06/24 09:02 MCV 93.1 fl (85-98) 10/06/24 09:02 MCH 30.6 pg (27-33) 10/06/24 09:02 MCHC 32.9 g/dL (30-55) 10/06/24 09:02 RDW 13.5 % (12.1-15.1) 10/06/24 09:02 Plt Count 281 10^3/cmm (157-399) 10/06/24 09:02 MPV 9.1 fL (7.4-10.4) 10/06/24 09:02 Neut % (Auto) 64.9 % 10/06/24 09:02 Lymph % (Auto) 23.6 % 10/06/24 09:02 [place] % (Auto) 9.1 % 10/06/24 09:02 Eos % (Auto) 2.0 % 10/06/24 09:02 Baso % (Auto) 0.2 % 10/06/24 09:02 Neut # (Auto) 2.85 10^3/uL (1.8-7.7) 10/06/24 09:02 Lymph # (Auto) 1.0 10^3/uL (0.8-4.8) 10/06/24 09:02 [place] # (Auto) 0.4 10^3/uL (0.2-0.9) 10/06/24 09:02 Eos # (Auto) 0.1 10^3/uL (0.0-0.8) 10/06/24 09:02 Baso # (Auto) 0.0 10^3/uL (0.0-0.1) 10/06/24 09:02 Nucleated RBC % (auto) 0 % 10/06/24 09:02 Nucleated RBCs # 0.0 /100WBC 10/06/24 09:02 Sodium 139 mmol/L (136-145) 10/06/24 09:02 Potassium 3.0 mmol/L (3.5-5.1) L 10/06/24 09:02 Chloride 105 mmol/L (98-107) 10/06/24 09:02 Carbon Dioxide 17 mmol/L (22-29) L 10/06/24 09:02 Anion Gap 20.0 (5-19) H 10/06/24 09:02 BUN 35 mg/dL (8-23) H 10/06/24 09:02 Creatinine 1.8 mg/dL (0.5-0.9) H 10/06/24 09:02 GFR Calculation Not Reportable 10/06/24 09:02 Glucose 205 mg/dL (65-115) H 10/06/24 09:02 Calculated Osmolality 302 mOsm/kg (285-295) H 10/06/24 09:02 Lactic Acid 2.2 mmol/L (0.5-2.2) 10/06/24 09:02 Calcium 8.1 mg/dL (8.5-10.5) L 10/06/24 09:02 Total Bilirubin 0.2 mg/dL (0.15-1.2) 10/06/24 09:02 AST 22 U/L (0-32) 10/06/24 09:02 ALT 13 U/L (0-33) 10/06/24 09:02 Alkaline Phosphatase 83 U/L (35-105) 10/06/24 09:02 Total Protein 7.5 g/dL (6.6-8.7) 10/06/24 09:02 Albumin 4.0 g/dL (3.5-5.2) 10/06/24 09:02 Globulin 3.5 g/dL (1.3-4.6) 10/06/24 09:02 Coronavirus (PCR) Negative (Negative) 10/06/24 09:39 Influenza A (PCR) Negative (Negative) 10/06/24 09:39 Influenza Type B (PCR) Negative (Negative) 10/06/24 09:39 RSV (PCR) Negative (Negative) 10/06/24 09:39 All radiology interpretation(s) finalized by discharge Discharge Plan Discharge Patient Disposition: Home Clinical Impression: Gastroenteritis Condition: Stable Prescriptions: New promethazine 25 mg tablet 25 mg PO Q6H PRN (Reason: nausea and vomiting) Qty: 20 0RF bisoprolol fumarate 5 mg tablet 5 mg PO DAILY Qty: 7 0RF No Action bisoprolol-hydrochlorothiazide [Ziac] 5-6.25 mg tablet 1 tab PO DAILY Zyrtec 10 mg capsule 20 mg PO DAILY diphenhydramine HCl [Benadryl Allergy] 25 mg tablet 50 mg PO DAILY Rx Instructions: 2 TABS AT NIGHT biotin 1 mg capsule 1 mg PO DAILY cholecalciferol (vitamin D3) 10 mcg (400 unit) capsule 10 mcg PO DAILY atorvastatin 10 mg tablet 5 mg PO Q7D anastrozole 1 mg tablet 1 mg PO DAILY Qty: 90 0RF mecobalamin (vitamin B12) [B12 Active] 1,000 mcg tablet,chewable 1,000 mcg PO DAILY Qty: 180 3RF Discharge Orders: Discharge ED (Routine); Ordered 10/06/24 Ordered By: Shiv Person Discharge Diet: Clear Liquid Discharge Activity: Increase activity as tolerated Patient Instructions: Opioid Safety, Pain Management Activity Restrictions/Additional Instructions: Thank you for choosing [facility] for your healthcare needs today. It is very important that you follow up as instructed or that you return to the Emergency Department should you have concerns or if your condition changes or worsens in any way. You were seen in the emergency room with nausea vomiting and diarrhea. Recommend that you push fluids stick to clear liquid diet/24 to 48 hours and advance as tolerated. Your kidney function was slightly worsened from its baseline recommend you hold your bisoprolol hydrochlorothiazide and instead take plain bisoprolol for the next few days. Follow-up with your primary care doctor to recheck in the office in the next 2 days. Print Language: Albanian Coding Level of Care Code ED Preform Plate Maker for Chg Fwd Related Data Home Medications ?Medication ?Instructions ?Recorded ?Confirmed bisoprolol 5 1 tab PO DAILY 09/06/20 10/06/24 mg-hydrochlorothiazide 6.25 mg tablet (Ziac) cetirizine 10 mg capsule (Zyrtec) 20 mg PO DAILY 03/10/21 10/06/24 diphenhydramine HCl 25 mg tablet 50 mg PO DAILY 03/10/21 10/06/24 (Benadryl Allergy) biotin 1 mg capsule 1 mg PO DAILY 09/11/22 10/06/24 cholecalciferol (vitamin D3) 10 10 mcg PO DAILY 09/11/22 10/06/24 mcg (400 unit) capsule atorvastatin 10 mg tablet 5 mg PO Q7D 02/12/23 10/06/24 Previous Rx's ?Medication ?Instructions ?Recorded mecobalamin (vitamin B12) 1,000 1,000 mcg PO DAILY #180 tabs 04/13/24 mcg chewable tablet (B12 Active) anastrozole 1 mg tablet 1 mg PO DAILY #90 tabs 08/18/24 bisoprolol fumarate 5 mg tablet 5 mg PO DAILY #7 tabs 10/06/24 promethazine 25 mg tablet 25 mg PO Q6H PRN nausea and 10/06/24 vomiting #20 tabs Allergies Allergy/AdvReac Type Severity Reaction Status Date / Time latex Allergy Unknown Unknown Verified 09/03/24 15:19 nitrile Allergy Unknown Unknown Verified 09/03/24 15:19
[2024-10-06 10:00] VITALS: PULSE 65; RESP 19; O2SAT 92
[2024-10-06 10:35] LABS: Covid PCR NEGATIVE (Negative); Influenza A NEGATIVE (Negative); Influenza B NEGATIVE (Negative); Respiratory Syncytial Virus Ce NEGATIVE (Negative)
--- NOTE | 2024-10-06 11:06 | CT_ITS ---
WS: [id number] CT ABDOMEN PELVIS TECHNIQUE: Noncontrast CT of the abdomen and pelvis with coronal and sagittal reformatted images. CLINICAL INFORMATION: Abdominal pain COMPARISON: 2018 DLP: 1189.[address] scans at [facility] use at least one of these dose optimization techniques: automated e xposure control; mA and/or kV adjustment per patient size (includes targeted exams where dose is matc hed to clinical indication); or iterative reconstruction. FINDINGS: Tiny esophageal hiatal hernia. Lung bases are well aerated. Subsegmental atelectasis in the lingula. Normal noncontrast liver. Normal noncontrast spleen. Fatty atrophy of the pancreas. Adrenal glands are normal. Aortic calcification. Normal caliber abdominal aorta. Peripelvic cysts bilaterall y. LEFT renal cyst. No obstructing renal or ureteral calculi. A few pelvic phleboliths. Sigmoid diverticulosis. No evidence of acute diverticulitis. Normal appendix in the RIGHT lower quadr ant. Tiny fat-containing umbilical hernia. Air-fluid level in the stomach. No evidence of small or la rge bowel obstruction. 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 Lumbar scoliosi s. Prior hysterectomy. Prior cholecystectomy. CT/CT abdomen pelvis wo con [id number] IMPRESSION: 1. No acute findings in the abdomen or pelvis. 2. Prior cholecystectomy and hysterectomy. 3. Sigmoid diverticulosis. No evidence of acute diverticulitis. 4. No obstructing renal or ureteral calculi. 5. Normal appendix in the RIGHT lower quadrant.
[2024-10-06] MEDS: sodium chloride 0.9% 1,000 ML 999 ML IV (11:11)
[2024-10-06 11:35] LABS: Lactic Sepsis W/Reflex 2.2 mmol/L (0.5-2.2)
[2024-10-06 12:59] LABS: Reflex Lactate Order REFLEX LACTIC ORDERD
[2024-10-06 13:06] VITALS: BP 118/59; PULSE 61; O2SAT 94
== END 2024-10-06 13:07 | disposition home or self-care (01) ==
PROVIDERS: Emergency Provider Family Medicine
DX: K52.9 Noninfective gastroenteritis and colitis, unspecified (principal); Z11.52 Encounter for screening for COVID-19; E11.9 Type 2 diabetes mellitus without complications; I10 Essential (primary) hypertension; E78.5 Hyperlipidemia, unspecified
CPT/HCPCS: 36415; 71045; 74176; 80053; 83605; 85025; 87637; 93005; 96360; 96361; 99285; J7030

== ENCOUNTER 2024-10-21 15:09 | Outpatient (RCR) | payer MEDICARE, OTHER, SELFPAY | END 2024-11-06 23:59 | disposition home or self-care (01) | LOC: SPT 15:09 | PROVIDERS: PCP Family Medicine; Visit Provider Family Medicine | DX: H81.12 Benign paroxysmal vertigo, left ear (principal); R42 Dizziness and giddiness | CPT/HCPCS: 95992 ==

== ENCOUNTER 2025-02-18 10:57 | Oncology outpatient (recurring) (ONCR) | payer MEDICARE, OTHER, SELFPAY ==
[2025-02-18 11:43] LABS: Basophils % 0.4 %; Eosinophils # 0.2 10^3/uL (0.0-0.8); Eosinophils % 3.2 %; Hematocrit 44.9 % (36-47); Lymphocytes # 1.7 10^3/uL (0.8-4.8); Lymphocytes % 35.2 %; Mean Corpuscular HGB Conc 32.5 g/dL (30-55); Mean Corpuscular Hemoglobin 30.1 pg (27-33); Mean Corpuscular Volume 92.6 fl (85-98); Mean Platelet Volume 9.2 fL (7.4-10.4); Monocytes # 0.4 10^3/uL (0.2-0.9); Monocytes % 8.1 %; Neutrophils % 53.1 %; Nucleated Red Blood Cells % 0 %; Platelet Count 233 10^3/cmm (157-399); Red Blood Count 4.85 10^6/uL (3.85-5.65); Red Cell Distribution Width 13.4 % (12.1-15.1); White Blood Count 4.71 10^3/uL (3.29-11.43)
[2025-02-18 12:00] LABS: Alanine Aminotransferase 11 U/L (0-33); Albumin Level 3.8 g/dL (3.5-5.2); Alkaline Phosphatase 75 U/L (35-105); Anion Gap 14.2 (5-19); Aspartate Amino Transferase 23 U/L (0-32); Blood Urea Nitrogen 22 mg/dL (8-23); Calcium 9.3 mg/dL (8.5-10.5); Carbon Dioxide 25 mmol/L (22-29); Chloride 109 mmol/L (98-107); Glucose 113 mg/dL (65-115); Osmolality Calculated 302 mOsm/kg (285-295); Potassium 4.2 mmol/L (3.5-5.1); Sodium 144 mmol/L (136-145); Total Bilirubin 0.5 mg/dL (0.15-1.2); Total Protein 6.8 g/dL (6.6-8.7)
[2025-02-18] MEDS: denosumab 60 mg SDV SUBCUT (13:16)
[2025-02-18 14:38] LABS: 25 Hydroxy Vitamin D 33 ng/mL (30-100)
== END 2025-03-08 23:59 | disposition home or self-care (01) ==
PROVIDERS: Nurse Practitioner Family; PCP Family Medicine; Visit Provider Nurse Practitioner Family
DX: C50.812 Malignant neoplasm of overlapping sites of left female breast (principal); Z17.0 Estrogen receptor positive status [ER+]; M85.80 Other specified disorders of bone density and structure, unspecified site; Z79.899 Other long term (current) drug therapy; Z79.811 Long term (current) use of aromatase inhibitors
CPT/HCPCS: 36415; 80053; 82306; 85025; 96372; 99214; J0897

== ENCOUNTER 2025-05-24 12:41 | Outpatient (CLI) | payer MEDICARE, OTHER, SELFPAY ==
--- NOTE | 2025-05-24 13:00 | MM_ITS ---
WS: [id number] BILATERAL 3D TOMOSYNTHESIS DIGITAL DIAGNOSTIC MAMMOGRAPHY WITH CAD CLINICAL INFORMATION: surveillance HISTORY: LEFT breast cancer COMPARISON: 05/13/2024 TECHNIQUE: Bilateral CC, MLO, and ML views. FINDINGS: Scattered fibroglandular densities bilaterally. Postoperative changes LEFT lumpectomy with surgical clips. No suspicious focal mass, asymmetry, calcifications, or architectural distortion. No evidence of malignancy. Vascular calcification. MM/MM diag BI tomosynthesis [id number] IMPRESSION: DENSITY: There are scattered areas of fibroglandular density. BI-RADS: 2 - Benign. FOLLOW UP: 1 Year Follow-up Recommend return to annual diagnostic mammography.
== END 2025-05-24 12:42 | disposition home or self-care (01) ==
PROVIDERS: PCP Family Medicine; Visit Provider Nurse Practitioner Family
DX: C50.812 Malignant neoplasm of overlapping sites of left female breast (principal); R92.323 Mammographic fibroglandular density, bilateral breasts; Z98.890 Other specified postprocedural states
CPT/HCPCS: 77062; G0279

== ENCOUNTER 2025-07-26 12:37 | Outpatient (CLI) | payer MEDICARE, OTHER, SELFPAY ==
--- NOTE | 2025-07-26 13:00 | XR_ITS ---
WS: [id number] SCREENING DEXA SCAN [place] CLINICAL INFORMATION: osteopenia/AI use COMPARISON: 2022 FINDINGS: The LEFT forearm bone mineral density measures 0.321. This corresponds to a T score score of -6.3 and Z score of -3.5. Left femoral neck bone mineral density measures 0.775 g/cm2. This corresponds to a T score of -1.8 and Z score of -0.4. Right femoral neck bone mineral density measures 0.756 g/cm2. This corresponds to a T score -2.0of and Z score of -0.5. Mean femoral neck bone mineral density measures 0.765 g/cm2. This corresponds to a T score of -1.9 and Z score of -0.5. XR/XR DEXA axial skeleton* [id number] IMPRESSION: Osteoporosis LEFT forearm. Osteopenia femoral necks. Patient's FRAX calculated 10 year probability for major osteoporotic fracture i s 18.2% and osteoporotic hip fracture is 6.4%. Bone density LEFT forearm decreased -25% Bone density femoral necks increased 1.7%
== END 2025-07-26 12:38 | disposition home or self-care (01) ==
LOC: RAD 12:37
PROVIDERS: PCP Family Medicine; Visit Provider Nurse Practitioner Family
DX: Z13.820 Encounter for screening for osteoporosis (principal); Z79.811 Long term (current) use of aromatase inhibitors; M81.0 Age-related osteoporosis without current pathological fracture; M85.89 Other specified disorders of bone density and structure, multiple sites
CPT/HCPCS: 77080

== ENCOUNTER 2025-08-19 12:37 | Oncology outpatient (recurring) (ONCR) | payer MEDICARE, OTHER, SELFPAY ==
[2025-08-19 13:09] LABS: Hematocrit 42.8 % (36-47); Hemoglobin 13.90 g/dL (11.27-16.99); Mean Corpuscular HGB Conc 32.5 g/dL (30-55); Mean Corpuscular Hemoglobin 30.3 pg (27-33); Mean Corpuscular Volume 93.4 fl (85-98); Nucleated Red Blood Cells % 0 %; Platelet Count 220 10^3/cmm (157-399); Red Blood Count 4.58 10^6/uL (3.85-5.65); White Blood Count 5.35 10^3/uL (3.29-11.43)
[2025-08-19 13:28] LABS: Alanine Aminotransferase 13 U/L (0-33); Albumin Level 3.8 g/dL (3.5-5.2); Alkaline Phosphatase 74 U/L (35-105); Anion Gap 17.4 (5-19); Aspartate Amino Transferase 20 U/L (0-32); Blood Urea Nitrogen 17 mg/dL (8-23); Calcium 9.6 mg/dL (8.5-10.5); Carbon Dioxide 24 mmol/L (22-29); Chloride 108 mmol/L (98-107); Globulin 3.1 g/dL (1.3-4.6); Glucose 106 mg/dL (65-115); Osmolality Calculated 302 mOsm/kg (285-295); Potassium 4.4 mmol/L (3.5-5.1); Sodium 145 mmol/L (136-145); Total Protein 6.9 g/dL (6.6-8.7)
[2025-08-19] MEDS: denosumab-bbdz 60 MG Syringe SUBCUT (13:51)
== END 2025-09-08 23:59 | disposition home or self-care (01) ==
PROVIDERS: Nurse Practitioner Family; PCP Family Medicine; Visit Provider Nurse Practitioner
DX: Z08 Encounter for follow-up examination after completed treatment for malignant neoplasm (principal); M85.80 Other specified disorders of bone density and structure, unspecified site; Z79.899 Other long term (current) drug therapy; Z79.811 Long term (current) use of aromatase inhibitors; Z85.3 Personal history of malignant neoplasm of breast
CPT/HCPCS: 80053; 85025; 96372; 99213; Q5136